=== PATIENT | male | born 1955 | race Two or more races ===

== ENCOUNTER 2020-11-11 02:05 | Inpatient (IN) | payer BC, OTHER ==
[~2020-11-11] VITALS: Ht 180.3 cm; Wt 62.6 kg
--- NOTE | 2020-11-11 02:08 | NUR ---
PT BIBRA FROM [facility] C/O SOB X1 DAY. PT IS TACHYPNIC AND USING ACCESSORY MUSCLES TO BREATHE. PT ON 15L NRB 83%. PT APPERS PALE AND UNABLE TO SPEAK FULL SENTENCES. PT SITTING UPRIGHT IN POSITION OF COMFORT. SKIN IS INTACT AND WARM. IV SITES RT HAND 18G AND LEFT AND 20G. PT CONNECTED TO CONE CLEANER AND POX. BLOOD SAMPLE AND BLOOD CULTURES OBTAINED AND SENT TO LAB. PT MADE COMFORTABLE WITH BLANKET AND CALL LIGHT WITHIN REACH
[2020-11-11 02:49] LABS: CALCIUM, SERUM 9.3 mg/dL (8.5-10.1); CARBON DIOXIDE 30 mmol/L (21-32); CHLORIDE 99 mmol/L (98-107); CREATININE 0.7 mg/dL (0.6-1.3); GLUCOSE 144 mg/dL (74-106); POTASSIUM 4.6 mmol/L (3.5-5.1); SODIUM SERUM 135 mmol/L (136-145); UREA NITROGEN, BLOOD 18 mg/dL (7-18)
--- NOTE | 2020-11-11 02:51 | NUR ---
COVID SWAB SENT TO LAB
--- NOTE | 2020-11-11 02:52 | NUR ---
XRAY AT BEDSIDE
[2020-11-11 02:59] LABS: EOSINOPHILS % (AUTO) 0.4 % (0.0-6.0); HEMATOCRIT 39 % (39-51); HEMOGLOBIN 13.3 g/dL (13.5-17.5); LYMPHOCYTES # (AUTO) 1.7 /CMM (0.8-4.8); LYMPHOCYTES % (AUTO) 4.8 % (20.0-44.0); MEAN CORPUSCULAR HGB CONC 34 g/dl (31.0-36.0); MEAN CORPUSCULAR VOLUME 97 fL (80-96); MONOCYTES # (AUTO) 1.2 /CMM (0.1-1.30); MONOCYTES % (AUTO) 3.2 % (2.0-12.0); NEUTROPHILS # (AUTO) 32.8 /CMM (1.8-8.9); NEUTROPHILS % (AUTO) 91.6 % (43.0-81.0); PLATELET COUNT (AUTO) 151 /CMM (150-450); RED BLOOD CELL COUNT(AUTO) 4.04 MIL/uL (4.5-6.0)
[2020-11-11 03:02] LABS: WHITE BLOOD COUNT (AUTO) 35.8 K/uL (4.3-11.0)
[2020-11-11 03:03] LABS: ALANINE AMINOTRANSFERASE 72 U/L (12-78); ALBUMIN 2.4 g/dL (3.4-5.0); ALKALINE PHOSPHATASE 178 U/L (46-116); ASPARTATE AMINOTRANSFERASE 51 U/L (15-37); B-TYPE NATRIURETIC PEPTIDE 925 PG/ML (0-125); BILIRUBIN,DIRECT 1.6 mg/dL (0.0-0.2); BILIRUBIN,TOTAL 2.7 mg/dL (0.2-1.0); TOTAL PROTEIN, SERUM 8.4 g/dL (6.4-8.2)
[2020-11-11 03:05] LABS: BAND % (MANUAL) 7 % (0.0-5.0); LYMPHOCYTES % (MANUAL) 2 % (16-48); MONOCYTES % (MANUAL) 3 % (0-11.0); NEUTROPHILS % (MANUAL) 87 (42-76)
[2020-11-11] MEDS ORDERED: LIDOCAINE 2% JEL UROJET 10 ML MM ONE (03:45)
[2020-11-11] MEDS ORDERED: ACETAMINOPHEN 650 MG/SUPP.RECT RC ONE ×2 (03:54→04:00)
[2020-11-11 04:35] LABS: BILIRUBIN,URINE NEGATIVE (NEGATIVE); COLOR,URINE YELLOW (YELLOW); LEUKOCYTE ESTERASE ,URINE NEGATIVE (NEGATIVE); NITRITE, URINE NEGATIVE (NEGATIVE); PH,URINE 7.5 (5.0-8.0); PROTEIN,URINE NEGATIVE (NEGATIVE); UGLUCOSE NEGATIVE (NEGATIVE)
[2020-11-11] MEDS ORDERED: methylPREDNISolone SOD SUCC 125 MG/2ML VIAL ONE ×2 (04:48→20:34)
[2020-11-11] MEDS ORDERED: PIPERACILLIN /TAZOBACTAM 3.375 G VIAL IV ONE (04:48)
[2020-11-11] MEDS ORDERED: VANCOMYCIN 1 GM VIAL ONE (04:48)
--- NOTE | 2020-11-11 04:55 | NUR ---
Call from lab. Rapid covid negative.
[2020-11-11] MEDS ORDERED: methylPREDNISolone SOD SUCC 125 MG/2ML VIAL IV ONE (05:00)
[2020-11-11] MEDS ORDERED: VANCOMYCIN 1 GM in IV D5W 250 ML IV ONE (05:00)
[2020-11-11] MEDS ORDERED: PIPERACILLIN /TAZOBACTAM 3.375 G in IV D5W 50 ML IV ONE (05:00)
[2020-11-11 05:21] LABS: BACTERIA,URINE Few /HPF (None Seen); SQUAMOUS EPITHELIAL CELL,UR Moderate /HPF (None Seen)
[2020-11-11] MEDS ORDERED: IV NS 0.9% 1,000 ML BAG IV ONE (05:30)
[2020-11-11] MEDS ORDERED: ACETAMINOPHEN 650 MG/SUPP.RECT RC PRN (06:00)
[2020-11-11] MEDS ORDERED: ONDANSETRON HCL/PF 4 MG/2 ML VIAL IVP PRN (06:00)
[2020-11-11] MEDS ORDERED: MORPHINE SULFATE INJ 2 MG/ML DISP.SYRIN IV PRN (06:00)
--- NOTE | 2020-11-11 07:30 | NUR ---
REPORT GIVEN TO MISHEL BANGURA FOR BAO
[2020-11-11] MEDS: IV NS 0.9% 1,000 ML IV PRN ×2 (08:41→22:00)
[2020-11-11] MEDS ORDERED: ENOXAPARIN SODIUM 40 MG/0.4 ML DISP.SYRIN SQ SCH (09:00)
[2020-11-11] MEDS ORDERED: ENOXAPARIN SODIUM 40 MG/0.4 ML DISP.SYRIN SQ ONE (09:19)
[2020-11-11] MEDS ORDERED: FAMOTIDINE/PF INJ 20 MG/2 ML VIAL IV ONE ×2 (09:21→20:34)
[2020-11-11] MEDS: FAMOTIDINE/PF INJ 20 MG/2 ML VIAL IV SCH ×2 (09:23→20:49)
[2020-11-11] MEDS: PIPERACILLIN /TAZOBACTAM 3.375 G in IV D5W 100 ML IV SCH ×2 (09:39→18:14)
--- NOTE | 2020-11-11 11:35 | NUR ---
dr moreno at bedside. md is aware of lactic acid 3.4 from earlier. md aware of bp 88/61. order receive to given bolus of ns 500ml x 1.
[2020-11-11] MEDS ORDERED: HYDR10SY16 PO (11:45)
[2020-11-11] MEDS ORDERED: METF500S7 PO (11:45)
[2020-11-11] MEDS ORDERED: TIOT18CA3 IH (11:45)
[2020-11-11] MEDS ORDERED: INSU100V SQ (11:45)
[2020-11-11] MEDS ORDERED: ACET-868 PO (11:45)
[2020-11-11] MEDS ORDERED: BUSP15TA3 PO (11:45)
[2020-11-11] MEDS ORDERED: PREDNISONE PO (11:45)
[2020-11-11] MEDS ORDERED: IPRA0.2S49 IH (11:45)
[2020-11-11] MEDS ORDERED: FOLI0.4T2 PO (11:45)
[2020-11-11] MEDS ORDERED: INSU100V7 SQ (11:45)
[2020-11-11] MEDS ORDERED: SPIR25TA6 PO (11:45)
[2020-11-11] MEDS ORDERED: OXYM15MI BNOSTRILS (11:45)
[2020-11-11] MEDS ORDERED: DULO60CA45 PO (11:45)
[2020-11-11] MEDS ORDERED: TRAZ-182 PO (11:45)
[2020-11-11] MEDS ORDERED: ARFO15VI NEB (11:45)
[2020-11-11] MEDS ORDERED: THIA100T70 PO (11:45)
[2020-11-11] MEDS ORDERED: OMEP20TA5 PO (11:45)
[2020-11-11] MEDS ORDERED: MOME13HF IH (11:45)
[2020-11-11] MEDS ORDERED: ALBU0.633 IH (11:45)
--- NOTE | 2020-11-11 12:00 | NUR ---
DR ORTEGA AT BEDSIDE. ABOUT TO START 500ML NS BUT DR. ORTEGA ORDERED TO GIVEN 250ML INSTEAD.
[2020-11-11] MEDS ORDERED: IV NS 0.9% 500 ML BAG IV ONE (12:30)
[2020-11-11] MEDS ORDERED: PIPERACILLIN /TAZOBACTAM 3.375 G in IV D5W 50 ML IV SCH (13:00)
--- NOTE | 2020-11-11 13:18 | NUR ---
DR CUELLAR IS AWARE OF BP 80/54. ORDERED TO COMPLETE THE REMAINDER OF 250ML OF NS THAT WAS HELD BY DR. ORTEGA. NOTED AND CARRIED OUT. IF BP DOES NOT GO UP START PT ON NEOSENEFRINE DRIP PERIPHERALLY. HOUSE SUP CALLED FOR CENTRAL LINE INSERTION.
[2020-11-11] MEDS: VANCOMYCIN 0.75 GM in IV D5W 250 ML IV SCH ×2 (13:30→20:58)
[2020-11-11] MEDS ORDERED: methylPREDNISolone SOD SUCC 125 MG/2ML VIAL IV SCH (13:30)
[2020-11-11] MEDS ORDERED: methylPREDNISolone SOD SUCC 40 MG/ML VIAL ONE (13:38)
--- NOTE | 2020-11-11 13:50 | NUR ---
pt's bp up to 93/44. md instructed to maintain MAP >65.
[2020-11-11] MEDS: methylPREDNISolone SOD SUCC 40 MG/ML VIAL IV SCH ×2 (14:46→20:49)
--- NOTE | 2020-11-11 17:56 | NUR ---
PT TITRATED DOWN TO A SIMPLE MASK AT 10LPM FROM NON REBREATHER @ 15LPM. TOLERATING WELL W/O ANY RESP DISTRESS. SATTING AT 98%
--- NOTE | 2020-11-11 19:05 | NUR ---
REC'D REPORT FROM MISHEL BANGURA FOR BAO. PT IS ON 10L SIMPLE MASK 98% O2 TOLERATING PROPERLY. BP 88/48. PT APPEARS COMFORTABLE, BREATHING EVENLY. CONNECTED TO THE MONITOR AND POX. PT GIVEN BLANETS AND CALL LIGHT WITHIN REACH. WILL CONTINUE TO MONITOR.
--- NOTE | 2020-11-11 19:11 | NUR ---
PT CARE RENDERED. PT IS CLEAN AND DRY. REPOSITIONED
--- NOTE | 2020-11-11 19:32 | NUR ---
consent signed by Godwin Morris dnp d/t pt is unable to sign d/t confusion
--- NOTE | 2020-11-11 19:45 | NUR ---
PICC LINE NURSE AT BEDSIDE. PLACED LINE IN RIGHT UPPER EXTREMITY
[2020-11-11] MEDS ORDERED: hydrOXYzine 10 MG TABLET PO PRN (20:00)
--- NOTE | 2020-11-11 21:05 | NUR ---
RT AT BEDSIDE
[2020-11-11] MEDS: IPRATROPIUM NEB FS 0.5 MG/2.5 ML AMPUL.NEB IH SCH ×2 (21:09→23:32)
[2020-11-11] MEDS ORDERED: IPRATROPIUM NEB FS 0.5 MG/2.5 ML AMPUL.NEB ONE ×2 (21:12→23:22)
[2020-11-11] MEDS ORDERED: TRAZODONE 50 MG TABLET ONE (21:39)
[2020-11-11] MEDS: TRAZODONE 50 MG TABLET PO SCH (21:47)
[2020-11-12] MEDS: PIPERACILLIN /TAZOBACTAM 3.375 G in IV D5W 100 ML IV SCH ×3 (01:30→17:47)
[2020-11-12] MEDS: IPRATROPIUM NEB FS 0.5 MG/2.5 ML AMPUL.NEB IH SCH ×6 (03:32→23:33)
[2020-11-12 04:32] LABS: HEMATOCRIT 33 % (39-51); HEMOGLOBIN 11.1 g/dL (13.5-17.5); LYMPHOCYTES # (AUTO) 0.3 /CMM (0.8-4.8); LYMPHOCYTES % (AUTO) 3.3 % (20.0-44.0); MEAN CORPUSCULAR HGB CONC 33 g/dl (31.0-36.0); MEAN CORPUSCULAR VOLUME 100 fL (80-96); MONOCYTES # (AUTO) 0.2 /CMM (0.1-1.30); MONOCYTES % (AUTO) 2.1 % (2.0-12.0); NEUTROPHILS # (AUTO) 8.4 /CMM (1.8-8.9); NEUTROPHILS % (AUTO) 94.6 % (43.0-81.0); RED BLOOD CELL COUNT(AUTO) 3.35 MIL/uL (4.5-6.0); WHITE BLOOD COUNT (AUTO) 8.8 K/uL (4.3-11.0)
[2020-11-12 04:45] LABS: CALCIUM, SERUM 8.3 mg/dL (8.5-10.1); CREATININE 0.5 mg/dL (0.6-1.3); MAGNESIUM 1.8 mg/dL (1.8-2.4); PHOSPHORUS 2.9 mg/dL (2.5-4.9); POTASSIUM 3.9 mmol/L (3.5-5.1)
[2020-11-12] MEDS: VANCOMYCIN 0.75 GM in IV D5W 250 ML IV SCH ×3 (05:15→21:14)
[2020-11-12] MEDS ORDERED: methylPREDNISolone SOD SUCC 125 MG/2ML VIAL ONE ×2 (05:15→21:06)
[2020-11-12] MEDS: methylPREDNISolone SOD SUCC 40 MG/ML VIAL IV SCH ×3 (05:15→21:14)
[2020-11-12 05:18] LABS: PLATELET COUNT (AUTO) 20 /CMM (150-450)
[2020-11-12 06:52] LABS: LYMPHOCYTES % (MANUAL) 4 % (16-48); MONOCYTES % (MANUAL) 2 % (0-11.0); NEUTROPHILS % (MANUAL) 94 (42-76)
--- NOTE | 2020-11-12 07:27 | NUR ---
GAVE REPORT TO MISHEL GRUBER FOR BAO
[2020-11-12] MEDS ORDERED: IPRATROPIUM NEB FS 0.5 MG/2.5 ML AMPUL.NEB ONE ×4 (07:47→20:01)
[2020-11-12] MEDS ORDERED: ENOXAPARIN SODIUM 40 MG/0.4 ML DISP.SYRIN SQ ONE (08:55)
[2020-11-12] MEDS ORDERED: FOLIC ACID 1 MG TABLET ONE (08:55)
[2020-11-12] MEDS ORDERED: DULOXETINE HCL 30 MG CAPSULE.DR ONE (08:55)
[2020-11-12] MEDS ORDERED: busPIRone 5 MG TABLET ONE (08:55)
[2020-11-12] MEDS ORDERED: THIAMINE HCL 100 MG TABLET ONE (08:56)
[2020-11-12] MEDS ORDERED: PANTOPRAZOLE 40 MG TABLET.DR PO ONE (08:56)
[2020-11-12] MEDS ORDERED: SPIRONOLACTONE 25 MG TABLET ONE (08:56)
[2020-11-12] MEDS ORDERED: ARFORMOTEROL TARTRATE NEB SCH (09:00)
[2020-11-12] MEDS ORDERED: TIOTROPIUM BROMIDE 6 CAP/BOX CAP.W.DEV IH SCH (09:00)
[2020-11-12] MEDS: INSULIN GLARGINE, 100 UNIT/ML CARTRIDGE SQ SCH (09:00)
[2020-11-12] MEDS ORDERED: METFORMIN 500 MG TABLET PO SCH (09:00)
--- NOTE | 2020-11-12 09:00 | NUR ---
SPEECH THERAPIST WAS AT BEDSIDE. PATIENT'S OXYGEN INCREASED TO 10LPM VIA SIMPLE MASK. ST WASN'T ABLE TO PERFORM A SWALLOW EVAL BECAUSE PATIENT DESATS IMMEDIATELY WHEN HE REMOVES THE MASK. PATIENT WAS GIVEN HIS PO MEDS, BUT IS POCKETING THE MEDICATION IN HIS MOUTH, ST STS KEEP PATIENT NPO AT THIS TIME TO PREVENT ASPIRATION.
[2020-11-12] MEDS ORDERED: FAMOTIDINE/PF INJ 20 MG/2 ML VIAL IV ONE ×2 (09:01→21:06)
[2020-11-12] MEDS: SPIRONOLACTONE 25 MG TABLET PO SCH (09:05)
[2020-11-12] MEDS: FAMOTIDINE/PF INJ 20 MG/2 ML VIAL IV SCH ×2 (09:05→21:13)
[2020-11-12] MEDS: OXYMETAZOLINE HCL NASAL SPRAY 30 ML BOTTLE NS SCH ×2 (09:05→16:15)
[2020-11-12] MEDS: FLUTICASONE/VILANTEROL 1 EACH BLST.W.DEV IH SCH (09:05)
[2020-11-12] MEDS: FOLIC ACID 1 MG TABLET PO SCH (09:06)
[2020-11-12] MEDS: DULOXETINE HCL 30 MG CAPSULE.DR PO SCH ×2 (09:06→16:15)
[2020-11-12] MEDS: busPIRone 5 MG TABLET PO SCH ×3 (09:06→16:15)
[2020-11-12] MEDS: THIAMINE HCL 100 MG TABLET PO SCH (09:08)
[2020-11-12] MEDS: PANTOPRAZOLE 40 MG TABLET.DR PO SCH (09:08)
--- NOTE | 2020-11-12 09:30 | NUR ---
JUNE SAXENA. DC'D BY DR. CUELLAR
[2020-11-12 10:55] LABS: HEMOGLOBIN 11.6 g/dL (13.5-17.5)
[2020-11-12 11:00] LABS: HEMATOCRIT 35 % (39-51); LYMPHOCYTES # (AUTO) 0.3 /CMM (0.8-4.8); LYMPHOCYTES % (AUTO) 2.7 % (20.0-44.0); MEAN CORPUSCULAR HGB CONC 33 g/dl (31.0-36.0); MEAN CORPUSCULAR VOLUME 101 fL (80-96); MONOCYTES # (AUTO) 0.2 /CMM (0.1-1.30); MONOCYTES % (AUTO) 2.2 % (2.0-12.0); NEUTROPHILS # (AUTO) 9.8 /CMM (1.8-8.9); NEUTROPHILS % (AUTO) 95.1 % (43.0-81.0); RED BLOOD CELL COUNT(AUTO) 3.47 MIL/uL (4.5-6.0); WHITE BLOOD COUNT (AUTO) 10.3 K/uL (4.3-11.0)
[2020-11-12] MEDS ORDERED: methylPREDNISolone SOD SUCC 40 MG/ML VIAL ONE (12:04)
[2020-11-12 12:45] LABS: BAND % (MANUAL) 3 % (0.0-5.0); LYMPHOCYTES % (MANUAL) 3 % (16-48); MONOCYTES % (MANUAL) 2 % (0-11.0); NEUTROPHILS % (MANUAL) 92 (42-76)
[2020-11-12 12:45] LABS: D-DIMER 2.99 mg/L(FEU (0.17-0.50)
--- NOTE | 2020-11-12 13:38 | NUR ---
PATIENT'S PULSE OX ON 80S WHILE HE WAS ON 10LPM VIA SIMPLE MASK. INCREASED O2 TO 15LPM VIA NRB.
--- NOTE | 2020-11-12 13:50 | NUR ---
PLATELET 65 PER LAB.
[2020-11-12 13:52] LABS: PLATELET COUNT (AUTO) 65 /CMM (150-450)
[2020-11-12 13:56] LABS: IRON, SERUM 19 ug/dl (50-175); TOTAL IRON BINDING CAPACITY 122 ug/dl (250-450)
[2020-11-12 14:06] LABS: FERRITIN 461 ng/mL (8-388)
[2020-11-12 14:41] LABS: ABG OXYGEN SATURATION 98.3 % (92.0-98.5); ABG PCO2 60.6 mmHg (35.0-45.0); ABG PH 7.331 (7.350-7.450); ABG PO2 159.9 mmHg (75.0-100.0); AaDO2 346.9 mmHg; COHb 0.3 % (0.5-1.5); MetHb 0.2 % (0.0-1.5); O2Hb 97.8 % (94.0-97.0); SITE, ABG Right Radial; VENT MODE, BG NRB
[2020-11-12] MEDS: IV NS 0.9% 1,000 ML IV PRN (17:47)
--- NOTE | 2020-11-12 18:07 | NUR ---
PATIENT PLACED ON 6LPM VIA NC WITH SPO2 OF 93-94%. NO RESPIRATORY DISTRESS NOTED.
--- NOTE | 2020-11-12 18:14 | NUR ---
PATIENT A/OX3, PERICARE PROVIDED. NO DISTRESS NOTED. KEPT COMFORTABLE. ALL NEEDS ATTENDED.
--- NOTE | 2020-11-12 19:48 | NUR ---
CALLED RT FOR BREATHING TREATMENT
[2020-11-12] MEDS: TRAZODONE 50 MG TABLET PO SCH (22:00)
--- NOTE | 2020-11-12 22:40 | NUR ---
I TRIED GIVING THE PT WATER, PT WAS ABLE TO SWALLOW 20MLS SLOWLY. I WILL KEEP THE PT NPO AT THIS TIME TO PREVENT ASPIRATION WHEN GIVING MEDS. WILL TRY SWALLOW EVAL AGAIN SOON.
--- NOTE | 2020-11-13 01:13 | NUR ---
PT AWAKE, PROVIDED WITH BLANKETS.
[2020-11-13] MEDS: PIPERACILLIN /TAZOBACTAM 3.375 G in IV D5W 100 ML IV SCH ×3 (02:00→17:06)
[2020-11-13] MEDS: IPRATROPIUM NEB FS 0.5 MG/2.5 ML AMPUL.NEB IH SCH ×6 (03:57→23:53)
--- NOTE | 2020-11-13 04:16 | NUR ---
PT REMAISN ASLEEP, VSS. SAT 94-96%.
[2020-11-13] MEDS: VANCOMYCIN 0.75 GM in IV D5W 250 ML IV SCH ×3 (05:50→21:25)
[2020-11-13 05:53] LABS: HEMATOCRIT 34 % (39-51); HEMOGLOBIN 11.4 g/dL (13.5-17.5); LYMPHOCYTES # (AUTO) 0.3 /CMM (0.8-4.8); LYMPHOCYTES % (AUTO) 4.1 % (20.0-44.0); MEAN CORPUSCULAR HGB CONC 34 g/dl (31.0-36.0); MEAN CORPUSCULAR VOLUME 99 fL (80-96); MONOCYTES # (AUTO) 0.2 /CMM (0.1-1.30); MONOCYTES % (AUTO) 2.4 % (2.0-12.0); NEUTROPHILS % (AUTO) 93.5 % (43.0-81.0); RED BLOOD CELL COUNT(AUTO) 3.41 MIL/uL (4.5-6.0); WHITE BLOOD COUNT (AUTO) 8.6 K/uL (4.3-11.0)
[2020-11-13] MEDS ORDERED: methylPREDNISolone SOD SUCC 125 MG/2ML VIAL ONE (06:02)
[2020-11-13] MEDS: methylPREDNISolone SOD SUCC 40 MG/ML VIAL IV SCH ×3 (06:04→21:16)
[2020-11-13 06:15] LABS: CALCIUM, SERUM 8.9 mg/dL (8.5-10.1); CREATININE 0.4 mg/dL (0.6-1.3); MAGNESIUM 1.7 mg/dL (1.8-2.4); POTASSIUM 3.5 mmol/L (3.5-5.1)
[2020-11-13 06:26] LABS: LYMPHOCYTES % (MANUAL) 3 % (16-48); METAMYELOCYTES % 1 % (0-0); MONOCYTES % (MANUAL) 2 % (0-11.0); NEUTROPHILS % (MANUAL) 94 (42-76)
[2020-11-13 06:28] LABS: PLATELET COUNT (AUTO) 38 /CMM (150-450)
[2020-11-13 06:44] LABS: D-DIMER 1.71 mg/L(FEU (0.17-0.50)
--- NOTE | 2020-11-13 06:45 | NUR ---
PT RESTING COMFORTABLY. VSS. WILL CONTINUE TO MONITOR.
[2020-11-13] MEDS: IV NS 0.9% 1,000 ML IV PRN (07:10)
[2020-11-13] MEDS ORDERED: IPRATROPIUM NEB FS 0.5 MG/2.5 ML AMPUL.NEB ONE ×3 (07:59→23:31)
[2020-11-13 08:06] LABS: IMMUNOGLOBULIN A, SERUM 795 mg/dL (61-437); IMMUNOGLOBULIN G, SERUM 1880 mg/dL (603-1613); IMMUNOGLOBULIN M, SERUM 281 mg/dL (20-172)
[2020-11-13] MEDS ORDERED: FOLIC ACID 1 MG TABLET ONE (08:30)
[2020-11-13] MEDS ORDERED: FAMOTIDINE (20 MG) 20 MG TABLET ONE (08:30)
[2020-11-13] MEDS ORDERED: DULOXETINE HCL 30 MG CAPSULE.DR ONE ×2 (08:30→16:31)
[2020-11-13] MEDS ORDERED: busPIRone 5 MG TABLET ONE ×3 (08:30→16:31)
[2020-11-13] MEDS ORDERED: PANTOPRAZOLE 40 MG TABLET.DR PO ONE (08:31)
[2020-11-13] MEDS ORDERED: THIAMINE HCL 100 MG TABLET ONE (08:31)
[2020-11-13] MEDS ORDERED: SPIRONOLACTONE 25 MG TABLET ONE (08:31)
[2020-11-13] MEDS: FOLIC ACID 1 MG TABLET PO SCH ×2 (09:00→09:09)
[2020-11-13] MEDS: INSULIN GLARGINE, 100 UNIT/ML CARTRIDGE SQ SCH (09:00)
[2020-11-13] MEDS: DULOXETINE HCL 30 MG CAPSULE.DR PO SCH ×3 (09:00→16:40)
[2020-11-13] MEDS: PANTOPRAZOLE 40 MG TABLET.DR PO SCH ×2 (09:00→09:09)
[2020-11-13] MEDS: busPIRone 5 MG TABLET PO SCH ×4 (09:00→16:40)
[2020-11-13] MEDS: SPIRONOLACTONE 25 MG TABLET PO SCH ×2 (09:00→09:09)
[2020-11-13] MEDS: THIAMINE HCL 100 MG TABLET PO SCH ×2 (09:00→09:09)
[2020-11-13] MEDS: OXYMETAZOLINE HCL NASAL SPRAY 30 ML BOTTLE NS SCH ×2 (09:09→16:30)
[2020-11-13] MEDS: FAMOTIDINE/PF INJ 20 MG/2 ML VIAL IV SCH ×2 (09:09→21:22)
[2020-11-13] MEDS: FLUTICASONE/VILANTEROL 1 EACH BLST.W.DEV IH SCH (09:09)
[2020-11-13] MEDS ORDERED: ALBUTEROL FS 2.5 MG/3 ML VIAL.NEB ONE (11:12)
[2020-11-13 13:06] LABS: *SPE A/G RATIO 0.5 (0.7-1.7); *SPE ALBUMIN 2.2 g/dL (2.9-4.4); *SPE ALPHA-1-GLOBULIN 0.4 g/dL (0.0-0.4); *SPE ALPHA-2-GLOBULIN 0.9 g/dL (0.4-1.0); *SPE GLOBULIN, TOTAL 4.7 g/dL (2.2-3.9); *SPE M-SPIKE Not Observed g/dL (Not Observed); *SPEGAMMA GLOBULIN 2.3 g/dL (0.4-1.8)
--- NOTE | 2020-11-13 13:36 | NUR ---
dr. moreno made aware of pts platelet count of 24. no apparent bleeding noted at this time, per md repeat cbc now. also made md aware regarding poor po intake. pt states no appetite. md also ordered megace 400mg qd
[2020-11-13 14:38] LABS: HEMATOCRIT 34 % (39-51); HEMOGLOBIN 11.3 g/dL (13.5-17.5); LYMPHOCYTES # (AUTO) 0.3 /CMM (0.8-4.8); LYMPHOCYTES % (AUTO) 2.8 % (20.0-44.0); MEAN CORPUSCULAR HGB CONC 33 g/dl (31.0-36.0); MEAN CORPUSCULAR VOLUME 98 fL (80-96); MONOCYTES # (AUTO) 0.2 /CMM (0.1-1.30); MONOCYTES % (AUTO) 2.2 % (2.0-12.0); NEUTROPHILS # (AUTO) 9.7 /CMM (1.8-8.9); RED BLOOD CELL COUNT(AUTO) 3.45 MIL/uL (4.5-6.0); WHITE BLOOD COUNT (AUTO) 10.2 K/uL (4.3-11.0)
[2020-11-13] MEDS: Magnesium 1GM/D5W 100ML PREMIX 100 ML IV SCH ×2 (15:00→16:00)
[2020-11-13] MEDS ORDERED: methylPREDNISolone SOD SUCC 40 MG/ML VIAL ONE ×2 (15:19→21:11)
[2020-11-13] MEDS ORDERED: Magnesium 1GM/D5W 100ML PREMIX 200 ML IV ONE (15:20)
[2020-11-13 15:32] LABS: PLATELET COUNT (AUTO) 18 /CMM (150-450)
--- NOTE | 2020-11-13 15:35 | NUR ---
notified dr moreno of platelet 18. awaiting orders.
--- NOTE | 2020-11-13 16:10 | NUR ---
dr moreno answered back, per md transfuse with 1unit of platelet. order placed. blood bank made aware spoke with adrian
[2020-11-13 16:15] LABS: LYMPHOCYTES % (MANUAL) 6 % (16-48); MONOCYTES % (MANUAL) 1 % (0-11.0); NEUTROPHILS % (MANUAL) 93 (42-76)
[2020-11-13] MEDS: MEGESTROL ACETATE SUSP 400 MG/10 ML UDC PO SCH (16:40)
--- NOTE | 2020-11-13 16:54 | NUR ---
consent obtained from pt for blood transfusion (platelets)
--- NOTE | 2020-11-13 16:54 | NUR ---
[facility]- [phone]
[2020-11-13] MEDS ORDERED: Sodium Phosphate 15 MMOL in IV NS 0.9% 245 ML IV SCH (17:00)
[2020-11-13] MEDS ORDERED: CT SWABBABLE VALVE TRANS SET 1 EA INFUS.SET MC ONE (17:06)
[2020-11-13] MEDS ORDERED: IV NS 0.9% 250 ML IV ONE (17:06)
[2020-11-13] MEDS ORDERED: IOHEXOL-350 100 ML VIAL IV ONE (17:06)
[2020-11-13] MEDS ORDERED: FAMOTIDINE/PF INJ 20 MG/2 ML VIAL IV ONE (21:10)
--- NOTE | 2020-11-13 22:13 | NUR ---
REPORT CALLED TO SLASHER HANDMISHEL SENA. WILL TRANSPORT PT VIA ACLS PROTOCOL.
[2020-11-13 22:30] VITALS: BP 136/84
[2020-11-13] MEDS: TRAZODONE 50 MG TABLET PO SCH (23:56)
[2020-11-14] VITALS (14 sets, daily range): BP systolic 103–132; BP diastolic 47–87
[2020-11-14] MEDS: IPRATROPIUM NEB FS 0.5 MG/2.5 ML AMPUL.NEB IH SCH ×6 (03:12→22:56)
[2020-11-14] MEDS: PIPERACILLIN /TAZOBACTAM 3.375 G in IV D5W 100 ML IV SCH ×3 (03:15→17:23)
[2020-11-14] MEDS: IV NS 0.9% 1,000 ML IV PRN (03:16)
[2020-11-14] MEDS: VANCOMYCIN 0.75 GM in IV D5W 250 ML IV SCH ×4 (05:41→22:00)
[2020-11-14] MEDS: LACTULOSE 10 G/15 ML UDC (PYXIS) PO PRN ×2 (05:41→12:07)
[2020-11-14] MEDS: methylPREDNISolone SOD SUCC 40 MG/ML VIAL IV SCH ×3 (05:42→21:11)
--- NOTE | 2020-11-14 07:35 | NUR ---
RN NOTE Patient is noted in bed, awake, alert with episodes of confusion. Breathing even and non labored continues on 6L via NC with no acute distress or shortness of breath noted. Patient is noted with BRIAN PICC line, L hand 22G, R hand 20G all intact and patent. Patient continues on tele monitor noted to be SR. Patient received platelet transfusion and tolerated well. Safety measures implemented with bed in low position and locked. Call light within reach. All needs attended to promptly. Will endorse to continue plan of care as ordered.
--- NOTE | 2020-11-14 08:00 | NUR ---
RN OPENING NOTE Patient is resting in bed, A/O x2-3, showing no signs of acute distress or SOB, saturating 97% on 5L NC. IV lines are clean and intact flushing well. Patient has no complaints of pain at this time. Bed is in lowest position, side rails x2 in upright position, call light is within reach, fall safety and aspiration precautions enforced. Will continue with plan of care. Addendum: 11/14/20 at 1122 by ZAIRE BRITTON RN TELE MONITOR SR
[2020-11-14 08:26] LABS: HEMATOCRIT 34 % (39-51); HEMOGLOBIN 11.5 g/dL (13.5-17.5); LYMPHOCYTES # (AUTO) 0.4 /CMM (0.8-4.8); LYMPHOCYTES % (AUTO) 3.7 % (20.0-44.0); MEAN CORPUSCULAR HGB CONC 34 g/dl (31.0-36.0); MEAN CORPUSCULAR VOLUME 98 fL (80-96); MONOCYTES # (AUTO) 0.2 /CMM (0.1-1.30); MONOCYTES % (AUTO) 2.2 % (2.0-12.0); NEUTROPHILS # (AUTO) 10.1 /CMM (1.8-8.9); NEUTROPHILS % (AUTO) 94.1 % (43.0-81.0); RED BLOOD CELL COUNT(AUTO) 3.49 MIL/uL (4.5-6.0); WHITE BLOOD COUNT (AUTO) 10.7 K/uL (4.3-11.0)
[2020-11-14] MEDS: busPIRone 5 MG TABLET PO SCH ×3 (08:53→16:08)
[2020-11-14] MEDS: FOLIC ACID 1 MG TABLET PO SCH (08:53)
[2020-11-14] MEDS: SPIRONOLACTONE 25 MG TABLET PO SCH (08:53)
[2020-11-14] MEDS: DULOXETINE HCL 30 MG CAPSULE.DR PO SCH ×2 (08:53→16:08)
[2020-11-14] MEDS: THIAMINE HCL 100 MG TABLET PO SCH (08:53)
[2020-11-14] MEDS: FAMOTIDINE/PF INJ 20 MG/2 ML VIAL IV SCH ×2 (08:54→21:11)
[2020-11-14] MEDS: OXYMETAZOLINE HCL NASAL SPRAY 30 ML BOTTLE NS SCH ×2 (08:55→16:09)
[2020-11-14] MEDS: FLUTICASONE/VILANTEROL 1 EACH BLST.W.DEV IH SCH (09:33)
[2020-11-14 09:34] LABS: PLATELET COUNT (AUTO) 28 /CMM (150-450)
[2020-11-14] MEDS: INSULIN GLARGINE, 100 UNIT/ML CARTRIDGE SQ SCH (09:34)
--- NOTE | 2020-11-14 09:55 | NUR ---
RN NOTE Dr. Baugh made aware of platelet level of 28. No new orders at this time.
--- NOTE | 2020-11-14 10:00 | NUR ---
RN NOTE Titrated patient down to 4L NC and patient is saturating 85%. 91% on 5L NC.
[2020-11-14 10:27] LABS: CALCIUM, SERUM 8.7 mg/dL (8.5-10.1); CREATININE 0.5 mg/dL (0.6-1.3); MAGNESIUM 2.2 mg/dL (1.8-2.4); PHOSPHORUS 2.5 mg/dL (2.5-4.9); POTASSIUM 3.2 mmol/L (3.5-5.1)
[2020-11-14 10:30] LABS: C-REACTIVE PROTEIN 4.9 mg/dL (0.0-0.9)
--- NOTE | 2020-11-14 12:10 | NUR ---
RN NOTE Ok per pharmacy to give Vancomycin IV at this time.
[2020-11-14 13:47] LABS: LYMPHOCYTES % (MANUAL) 5 % (16-48); MONOCYTES % (MANUAL) 3 % (0-11.0); NEUTROPHILS % (MANUAL) 92 (42-76)
[2020-11-14] MEDS: POTASSIUM CHLORIDE 20 MEQ TAB.PRT.SR PO SCH ×2 (15:20→16:09)
[2020-11-14] MEDS: MEGESTROL ACETATE SUSP 400 MG/10 ML UDC PO SCH (16:08)
--- NOTE | 2020-11-14 18:06 | NUR ---
RN CLOSING NOTE Patient is resting in bed, A/O x2-3, showing no signs of acute distress or SOB, saturating 97% on 5L NC. IV lines are clean and intact flushing well. Patient has no complaints of pain at this time. All patient needs met, all due medications given, patient kept clean and dry throughout shift. Bed is in lowest position, side rails x2 in upright position, call light is within reach, fall safety and aspiration precautions enforced. Will endorse to cook night for BAO. Addendum: 11/14/20 at 1815 by ZAIRE BRITTON RN *correction: 91% on 5L NC.
--- NOTE | 2020-11-14 19:20 | NUR ---
RN NOTE Patient Received. Patient is noted in bed, awake, alert with episodes of confusion. Patient is able to follow commands. Breathing even and non labored continues on 5L via NC with no acute distress or shortness of breath noted. Patient is noted with BRIAN PICC line, L hand 22G, R hand 20G all intact and patent. Patient continues on tele monitor noted to be SR. Safety measures implemented with bed in low position and locked. Call light within reach. All needs attended to promptly. Will endorse to continue plan of care as ordered.
[2020-11-14] MEDS: TRAZODONE 50 MG TABLET PO SCH (21:11)
[2020-11-15] VITALS (8 sets, daily range): BP systolic 103–133; BP diastolic 60–80
[2020-11-15] MEDS: PIPERACILLIN /TAZOBACTAM 3.375 G in IV D5W 100 ML IV SCH ×3 (02:06→17:16)
[2020-11-15] MEDS: LACTULOSE 10 G/15 ML UDC (PYXIS) PO PRN ×2 (02:40→14:57)
[2020-11-15] MEDS: IPRATROPIUM NEB FS 0.5 MG/2.5 ML AMPUL.NEB IH SCH ×6 (04:34→23:24)
[2020-11-15] MEDS: methylPREDNISolone SOD SUCC 40 MG/ML VIAL IV SCH ×3 (04:41→21:52)
[2020-11-15] MEDS: VANCOMYCIN 0.75 GM in IV D5W 250 ML IV SCH ×3 (04:43→21:54)
[2020-11-15 07:58] LABS: HEMATOCRIT 35 % (39-51); HEMOGLOBIN 11.8 g/dL (13.5-17.5); LYMPHOCYTES # (AUTO) 0.4 /CMM (0.8-4.8); LYMPHOCYTES % (AUTO) 3.7 % (20.0-44.0); MEAN CORPUSCULAR HGB CONC 34 g/dl (31.0-36.0); MEAN CORPUSCULAR VOLUME 97 fL (80-96); MONOCYTES # (AUTO) 0.3 /CMM (0.1-1.30); MONOCYTES % (AUTO) 2.5 % (2.0-12.0); NEUTROPHILS # (AUTO) 10.4 /CMM (1.8-8.9); NEUTROPHILS % (AUTO) 93.8 % (43.0-81.0); RED BLOOD CELL COUNT(AUTO) 3.61 MIL/uL (4.5-6.0); WHITE BLOOD COUNT (AUTO) 11.1 K/uL (4.3-11.0)
--- NOTE | 2020-11-15 07:58 | NUR ---
OPEN NOTES PATIENT IS A/O X 2 ON 6L HUMIDIFIER NASAL CANNULA WITH NO SIGNS OF DISTRESS. R UA PICC LINE RUNNING NS AT 75 ML/HR, IV L HAND #20 G INTACT AND IV R HAND #22G INTACT. ON TELE MONITOR SR. NO COMPLAIN OF PAIN AT THIS TIME. SAFETY MEASURES ARE APPLIED BED IS IN THE LOWEST POSITION SIDE RAILS UP X 2. CALL LIGHT WITHIN REACH WILL CONTINUE TO MONITOR.
[2020-11-15 08:23] LABS: CALCIUM, SERUM 8.9 mg/dL (8.5-10.1); CREATININE 0.5 mg/dL (0.6-1.3); MAGNESIUM 2.1 mg/dL (1.8-2.4); PHOSPHORUS 2.7 mg/dL (2.5-4.9); POTASSIUM 3.9 mmol/L (3.5-5.1)
[2020-11-15] MEDS: FAMOTIDINE/PF INJ 20 MG/2 ML VIAL IV SCH ×2 (09:09→21:51)
[2020-11-15] MEDS: THIAMINE HCL 100 MG TABLET PO SCH (09:09)
[2020-11-15] MEDS: busPIRone 5 MG TABLET PO SCH ×3 (09:09→17:15)
[2020-11-15] MEDS: DULOXETINE HCL 30 MG CAPSULE.DR PO SCH ×2 (09:09→17:15)
[2020-11-15] MEDS: FOLIC ACID 1 MG TABLET PO SCH (09:09)
[2020-11-15] MEDS: FLUTICASONE/VILANTEROL 1 EACH BLST.W.DEV IH SCH (09:20)
[2020-11-15] MEDS: OXYMETAZOLINE HCL NASAL SPRAY 30 ML BOTTLE NS SCH ×2 (09:21→17:15)
[2020-11-15] MEDS: INSULIN GLARGINE, 100 UNIT/ML CARTRIDGE SQ SCH (09:21)
[2020-11-15] MEDS: SPIRONOLACTONE 25 MG TABLET PO SCH (10:15)
[2020-11-15 11:14] LABS: LYMPHOCYTES % (MANUAL) 5 % (16-48); MONOCYTES % (MANUAL) 3 % (0-11.0); NEUTROPHILS % (MANUAL) 92 (42-76)
[2020-11-15 13:27] LABS: PLATELET COUNT (AUTO) 67 /CMM (150-450)
[2020-11-15] MEDS: MEGESTROL ACETATE SUSP 400 MG/10 ML UDC PO SCH (17:15)
--- NOTE | 2020-11-15 19:55 | NUR ---
CLOSED NOTES PATIENT IS A/O X 2 ON 6L HUMIDIFIER NASAL CANNULA WITH NO SIGNS OF DISTRESS. R UA PICC LINE, IV L HAND #20 G INTACT AND IV R HAND #22G INTACT. ON TELE MONITOR SR. NO COMPLAIN OF PAIN AT THIS TIME. PATIENT KEPT CLEAN AND DRY. ALL NEEDS, CARE, TREATMENT, AND MEDICATIONS WERE ADMINISTERED ANTICIPATED PER ORDER. SAFETY MEASURES ARE APPLIED, BED IS IN LOW POSITION SIDE RAILS UP X 2. CALL LIGHT WITHIN REACH WILL ENDORSE TO THE AUTOMOTIVE DETAILER NURSE.
[2020-11-15] MEDS: TRAZODONE 50 MG TABLET PO SCH (22:22)
[2020-11-16] VITALS: BP 108/71
[2020-11-16] MEDS: Z GUARD REMEDY 4 OZ OINT TP PRN (01:18)
[2020-11-16] MEDS: PIPERACILLIN /TAZOBACTAM 3.375 G in IV D5W 100 ML IV SCH ×3 (02:49→17:08)
[2020-11-16] MEDS: IPRATROPIUM NEB FS 0.5 MG/2.5 ML AMPUL.NEB IH SCH ×6 (03:47→23:01)
[2020-11-16 04:00] VITALS: BP 125/89
[2020-11-16] MEDS: VANCOMYCIN 0.75 GM in IV D5W 250 ML IV SCH ×3 (05:38→22:53)
[2020-11-16] MEDS: methylPREDNISolone SOD SUCC 40 MG/ML VIAL IV SCH ×3 (05:38→22:53)
[2020-11-16 07:06] LABS: BASOPHILS % (AUTO) 0.1 % (0.0-2.0); HEMATOCRIT 35 % (39-51); HEMOGLOBIN 11.5 g/dL (13.5-17.5); LYMPHOCYTES # (AUTO) 0.4 /CMM (0.8-4.8); LYMPHOCYTES % (AUTO) 3.3 % (20.0-44.0); MEAN CORPUSCULAR HGB CONC 33 g/dl (31.0-36.0); MEAN CORPUSCULAR VOLUME 98 fL (80-96); MONOCYTES # (AUTO) 0.3 /CMM (0.1-1.30); MONOCYTES % (AUTO) 2.6 % (2.0-12.0); NEUTROPHILS # (AUTO) 11.8 /CMM (1.8-8.9); RED BLOOD CELL COUNT(AUTO) 3.57 MIL/uL (4.5-6.0); WHITE BLOOD COUNT (AUTO) 12.6 K/uL (4.3-11.0)
[2020-11-16 07:38] LABS: PLATELET COUNT (AUTO) 40 /CMM (150-450)
[2020-11-16 07:52] LABS: CALCIUM, SERUM 8.7 mg/dL (8.5-10.1); CREATININE 0.5 mg/dL (0.6-1.3); MAGNESIUM 2.1 mg/dL (1.8-2.4); PHOSPHORUS 2.4 mg/dL (2.5-4.9); POTASSIUM 3.6 mmol/L (3.5-5.1)
[2020-11-16 08:00] VITALS: BP 118/83
--- NOTE | 2020-11-16 08:00 | NUR ---
MS/RN Opening note Patient received from retail shift leader. A/O X2, with periods of confusion. Picc line to right upper arm flushing well with normal saline, no signs of infiltration seen. Safety measures in place, bed in low setting, side rails X3 in upright position. Call light within reach, will conitnue to monitor and ensure safety.
--- NOTE | 2020-11-16 09:00 | NUR ---
MS/RN Medications Morning medications administered, crushed in apple sauce.
[2020-11-16] MEDS: THIAMINE HCL 100 MG TABLET PO SCH (09:01)
[2020-11-16] MEDS: busPIRone 5 MG TABLET PO SCH ×3 (09:01→17:00)
[2020-11-16] MEDS: SPIRONOLACTONE 25 MG TABLET PO SCH (09:02)
[2020-11-16] MEDS: FOLIC ACID 1 MG TABLET PO SCH (09:02)
[2020-11-16] MEDS: DULOXETINE HCL 30 MG CAPSULE.DR PO SCH ×2 (09:02→17:00)
[2020-11-16] MEDS: FAMOTIDINE/PF INJ 20 MG/2 ML VIAL IV SCH ×2 (09:02→22:52)
[2020-11-16] MEDS: Z GUARD REMEDY 2 OZ OINT TP SCH (09:03)
[2020-11-16] MEDS: INSULIN GLARGINE, 100 UNIT/ML CARTRIDGE SQ SCH (09:05)
[2020-11-16] MEDS: OXYMETAZOLINE HCL NASAL SPRAY 30 ML BOTTLE NS SCH ×2 (09:11→17:00)
[2020-11-16] MEDS: FLUTICASONE/VILANTEROL 1 EACH BLST.W.DEV IH SCH (09:19)
--- NOTE | 2020-11-16 09:30 | NUR ---
MS/RN Platelet count Dr Baugh notified of low platelet count, awaiting orders.
--- NOTE | 2020-11-16 10:00 | NUR ---
MS/RN S/B Dr Baugh Seen by MD - made aware of platelet count, order given to continue to monitor.
--- NOTE | 2020-11-16 11:44 | NUR ---
WOUND CARE CONSULT: PT PRESENTS WITH RASH AND INCONTINENCE ASSOCIATED SKIN DAMAGE TO SACRAL/BUTTOCK AREA, PRESENT ON ADMISSION. RECOMMENDATIONS MADE FOR SKIN PROTECTION. DISCUSSED WITH NURSING STAFF. PT IS VERY THIN AND BONY. IN AGREEMENT WITH PLAN OF CARE. CURRENT STANLEY SCORE IS 15. Addendum: 11/16/20 at 1145 by FAITH ASCENCIO WNDNU Amended: Links added.
[2020-11-16 12:00] VITALS: BP 111/73
[2020-11-16] MEDS: LACTULOSE 10 G/15 ML UDC (PYXIS) PO PRN (12:01)
[2020-11-16 12:26] LABS: *ANA ANTI-CENTROMERE B AB <0.2 AI (0.0-0.9); *ANA ANTI-DNA(DS) AB, QN 1 IU/mL (0-9); *ANA ANTI-JO-1 <0.2 AI (0.0-0.9); *ANA ANTICHROMATIN ANTIBODY <0.2 AI (0.0-0.9); *ANA RNP ANTIBODIES <0.2 AI (0.0-0.9); *ANA SJOGREN'S ANTI-SS-A <0.2 AI (0.0-0.9); *ANA SJOGREN'S ANTI-SS-B <0.2 AI (0.0-0.9); *ANAANTI-SCLERODERMA-70 AB <0.2 AI (0.0-0.9); *ANASMITH AB <0.2 AI (0.0-0.9)
--- NOTE | 2020-11-16 13:12 | NUR ---
MS/RN Ammonia Ammonia level elevated at 87, lactulose administered as ordered. Repeat level ordered for tomorrow.
[2020-11-16 16:00] VITALS: BP_SYST 129; BP_DIAS 84; BP_DIAS 89
[2020-11-16] MEDS: MEGESTROL ACETATE SUSP 400 MG/10 ML UDC PO SCH (16:59)
[2020-11-16] MEDS: CLOTRIMAZOLE 1% 15 GM TUBE TP SCH (17:15)
[2020-11-16] MEDS ORDERED: NEUTRA PHOS 1 POWD.PACKET PO ONE (17:30)
--- NOTE | 2020-11-16 18:32 | NUR ---
MS/RN End note Patient remains in stable condition, all care to continue as ordered. Will endorse to airplane flight attendant supervisor.
[2020-11-16 20:00] VITALS: BP 116/85
[2020-11-16] MEDS: TRAZODONE 50 MG TABLET PO SCH (22:53)
[2020-11-17] VITALS: BP 128/80
[2020-11-17] MEDS: PIPERACILLIN /TAZOBACTAM 3.375 G in IV D5W 100 ML IV SCH ×3 (02:53→20:47)
[2020-11-17] MEDS: IPRATROPIUM NEB FS 0.5 MG/2.5 ML AMPUL.NEB IH SCH ×6 (03:07→22:54)
[2020-11-17 04:00] VITALS: BP 112/67
[2020-11-17] MEDS: VANCOMYCIN 0.75 GM in IV D5W 250 ML IV SCH ×3 (05:35→22:15)
[2020-11-17] MEDS: methylPREDNISolone SOD SUCC 40 MG/ML VIAL IV SCH ×2 (05:35→14:49)
[2020-11-17 06:46] LABS: BASOPHILS % (AUTO) 0.1 % (0.0-2.0); EOSINOPHILS % (AUTO) 0.1 % (0.0-6.0); HEMATOCRIT 33 % (39-51); HEMOGLOBIN 11.1 g/dL (13.5-17.5); LYMPHOCYTES # (AUTO) 0.3 /CMM (0.8-4.8); LYMPHOCYTES % (AUTO) 3.2 % (20.0-44.0); MEAN CORPUSCULAR HGB CONC 34 g/dl (31.0-36.0); MEAN CORPUSCULAR VOLUME 98 fL (80-96); MONOCYTES # (AUTO) 0.3 /CMM (0.1-1.30); MONOCYTES % (AUTO) 2.4 % (2.0-12.0); NEUTROPHILS # (AUTO) 10.1 /CMM (1.8-8.9); NEUTROPHILS % (AUTO) 94.2 % (43.0-81.0); RED BLOOD CELL COUNT(AUTO) 3.36 MIL/uL (4.5-6.0); WHITE BLOOD COUNT (AUTO) 10.7 K/uL (4.3-11.0)
[2020-11-17 07:03] LABS: CALCIUM, SERUM 8.6 mg/dL (8.5-10.1); CREATININE 0.4 mg/dL (0.6-1.3); POTASSIUM 3.8 mmol/L (3.5-5.1)
--- NOTE | 2020-11-17 07:30 | NUR ---
RECEIVED PT. ALERT AND ORIENTED X2,MAINLY INDONESIAN SPEAKING.VS STABLE.02 REAPPLIED OFTEN PT. REMOVES.HOB ELEVATED. Addendum: 11/17/20 at 1131 by BOB NIEVES RN INCORRECT PT.
--- NOTE | 2020-11-17 08:00 | NUR ---
RECEIVED PT. IN AM.ALERT AND ORIENTED X2-3.COOPERATIVE.MED COMPLIANT.VS STABLE.IV INFUSING.
[2020-11-17 08:13] VITALS: BP 114/72
--- NOTE | 2020-11-17 08:30 | NUR ---
RECEIVED PLATELET REPORT OF FOR TODAY. Addendum: 11/17/20 at 1132 by BOB NIEVES RN INCORRECT PT.
[2020-11-17] MEDS: SPIRONOLACTONE 25 MG TABLET PO SCH (09:00)
[2020-11-17] MEDS: CLOTRIMAZOLE 1% 15 GM TUBE TP SCH ×2 (09:00→17:44)
[2020-11-17] MEDS: INSULIN GLARGINE, 100 UNIT/ML CARTRIDGE SQ SCH (09:26)
[2020-11-17] MEDS: FLUTICASONE/VILANTEROL 1 EACH BLST.W.DEV IH SCH (09:27)
[2020-11-17] MEDS: OXYMETAZOLINE HCL NASAL SPRAY 30 ML BOTTLE NS SCH ×2 (09:27→17:44)
[2020-11-17] MEDS: FAMOTIDINE/PF INJ 20 MG/2 ML VIAL IV SCH (09:57)
[2020-11-17] MEDS: DULOXETINE HCL 30 MG CAPSULE.DR PO SCH ×2 (09:58→17:45)
[2020-11-17] MEDS: busPIRone 5 MG TABLET PO SCH ×3 (09:58→17:00)
[2020-11-17] MEDS: FOLIC ACID 1 MG TABLET PO SCH (09:58)
[2020-11-17] MEDS: THIAMINE HCL 100 MG TABLET PO SCH (09:58)
[2020-11-17] MEDS: Z GUARD REMEDY 2 OZ OINT TP SCH (10:02)
[2020-11-17 10:40] LABS: PLATELET COUNT (AUTO) 45 /CMM (150-450)
[2020-11-17 16:00] VITALS: BP 104/74
[2020-11-17] MEDS ORDERED: methylPREDNISolone SOD SUCC 40 MG/ML VIAL IV SCH (17:30)
[2020-11-17] MEDS: MEGESTROL ACETATE SUSP 400 MG/10 ML UDC PO SCH (17:44)
--- NOTE | 2020-11-17 19:15 | NUR ---
RN NOTE Patient Received. Patient is noted in bed, awake, alert with episodes of confusion. Patient is able to follow simple commands. Breathing even and non labored continues on 6L via NC with no acute distress or shortness of breath noted. Patient is noted with BRIAN PICC line, L hand 22G all intact and patent. Patient continues on tele monitor noted to be SR. Safety measures implemented with bed in low position and locked. Call light within reach. All needs attended to promptly. Will continue plan of care as ordered.
[2020-11-17 20:00] VITALS: BP 107/70
[2020-11-17] MEDS: TRAZODONE 50 MG TABLET PO SCH (21:01)
[2020-11-18] VITALS (8 sets, daily range): BP systolic 92–108; BP diastolic 60–83
[2020-11-18] MEDS: PIPERACILLIN /TAZOBACTAM 3.375 G in IV D5W 100 ML IV SCH ×3 (02:22→19:27)
[2020-11-18] MEDS: IPRATROPIUM NEB FS 0.5 MG/2.5 ML AMPUL.NEB IH SCH ×6 (04:10→19:30)
[2020-11-18] MEDS: VANCOMYCIN 0.75 GM in IV D5W 250 ML IV SCH ×3 (05:11→21:23)
[2020-11-18] MEDS: LACTULOSE 10 G/15 ML UDC (PYXIS) PO PRN ×2 (05:12→12:41)
[2020-11-18] MEDS: IV NS 0.9% 1,000 ML IV PRN (05:29)
[2020-11-18 07:09] LABS: EOSINOPHILS % (AUTO) 0.8 % (0.0-6.0); HEMATOCRIT 35 % (39-51); HEMOGLOBIN 11.6 g/dL (13.5-17.5); LYMPHOCYTES # (AUTO) 0.8 /CMM (0.8-4.8); LYMPHOCYTES % (AUTO) 5.5 % (20.0-44.0); MEAN CORPUSCULAR HGB CONC 33 g/dl (31.0-36.0); MEAN CORPUSCULAR VOLUME 99 fL (80-96); MONOCYTES # (AUTO) 0.3 /CMM (0.1-1.30); MONOCYTES % (AUTO) 2.5 % (2.0-12.0); NEUTROPHILS # (AUTO) 12.6 /CMM (1.8-8.9); NEUTROPHILS % (AUTO) 91.2 % (43.0-81.0); RED BLOOD CELL COUNT(AUTO) 3.54 MIL/uL (4.5-6.0); WHITE BLOOD COUNT (AUTO) 13.8 K/uL (4.3-11.0)
[2020-11-18 07:22] LABS: CALCIUM, SERUM 8.5 mg/dL (8.5-10.1); CREATININE 0.5 mg/dL (0.6-1.3); POTASSIUM 3.7 mmol/L (3.5-5.1)
[2020-11-18 07:24] LABS: D-DIMER 2.76 mg/L(FEU (0.17-0.50)
[2020-11-18 08:37] LABS: PLATELET COUNT (AUTO) 13 /CMM (150-450)
[2020-11-18] MEDS: SPIRONOLACTONE 25 MG TABLET PO SCH (09:00)
[2020-11-18] MEDS: PANTOPRAZOLE 40 MG TABLET.DR PO SCH (09:54)
[2020-11-18] MEDS: DULOXETINE HCL 30 MG CAPSULE.DR PO SCH ×2 (09:54→19:40)
[2020-11-18] MEDS: busPIRone 5 MG TABLET PO SCH ×3 (09:54→19:39)
[2020-11-18] MEDS: FOLIC ACID 1 MG TABLET PO SCH (09:54)
[2020-11-18] MEDS: methylPREDNISolone SOD SUCC 40 MG/ML VIAL IV SCH (09:55)
[2020-11-18] MEDS: CLOTRIMAZOLE 1% 15 GM TUBE TP SCH ×2 (09:59→19:38)
[2020-11-18] MEDS: Z GUARD REMEDY 2 OZ OINT TP SCH (09:59)
[2020-11-18] MEDS: THIAMINE HCL 100 MG TABLET PO SCH (09:59)
[2020-11-18] MEDS: OXYMETAZOLINE HCL NASAL SPRAY 30 ML BOTTLE NS SCH ×2 (10:00→19:38)
[2020-11-18] MEDS: FLUTICASONE/VILANTEROL 1 EACH BLST.W.DEV IH SCH (10:02)
[2020-11-18] MEDS: INSULIN GLARGINE, 100 UNIT/ML CARTRIDGE SQ SCH (10:04)
[2020-11-18 13:36] LABS: LYMPHOCYTES % (MANUAL) 8 % (16-48); MONOCYTES % (MANUAL) 4 % (0-11.0); NEUTROPHILS % (MANUAL) 88 (42-76)
--- NOTE | 2020-11-18 18:30 | NUR ---
received pt. in am alert and oriented x2.episodes of confusion,follow commands.vs stable.
[2020-11-18] MEDS: MEGESTROL ACETATE SUSP 400 MG/10 ML UDC PO SCH (19:41)
[2020-11-18] MEDS: TRAZODONE 50 MG TABLET PO SCH (21:23)
--- NOTE | 2020-11-18 21:44 | NUR ---
NURSES NOTES: RECEIVED PTIENT IN BED, AWAKE,ALERT AND ORIENTED X2 WITH NOTED EPISODES OF CONFUSION. WILL ADMINISTER ORDERED MEDICATIONS. RIGHT UPPER ARM PICC LINE IN PLACE. REALITY ORIENTATION DONE. BED ALARM KEPT ON. CALL LIGHT WITHIN PATIENT'S REACH. SAFETY AND FALL PRECAUTIONS MAINTAINED. WILL MONITOR PATIENT.
[2020-11-19] VITALS: BP_SYST 113; BP_DIAS 64; BP_DIAS 73
[2020-11-19] MEDS: IPRATROPIUM NEB FS 0.5 MG/2.5 ML AMPUL.NEB IH SCH ×7 (00:19→23:41)
[2020-11-19] MEDS: PIPERACILLIN /TAZOBACTAM 3.375 G in IV D5W 100 ML IV SCH ×2 (02:05→10:10)
[2020-11-19 04:00] VITALS: BP 119/60
[2020-11-19 04:05] VITALS: BP 119/60
[2020-11-19] MEDS: VANCOMYCIN 0.75 GM in IV D5W 250 ML IV SCH ×2 (04:06→13:18)
--- NOTE | 2020-11-19 06:17 | NUR ---
CLOSING NOTES: PATIENT IN BED, RESTING COMFORTABLY WITH O2 INHALATION AT 5LPM. NO COMPLAINS OF PAIN , NO RESPIRATORY DISTRESS THIS TIME. ADMINISTERED SCHEDULED MEDICATIONS. SAFETY AND FALL PRECAUTIONS MAINTAINED. IVF ON GOING. O2 SATS MONITORED. WILL ENDORSE PATIENT'S CARE TO DAY SHIFT NURSE.
--- NOTE | 2020-11-19 07:30 | NUR ---
TELE/RN OPENING NOTES Patient is awake in bed, A&O x 2, follows commands and able to make needs known. Denies any pain and discomfort at this time. Breathing even and non-labored on 5 L oxygen via NC, no respiratory distress noted. No cardiac distress noted, on tele monitor reading ST 103. BRIAN PICC line and L hand #22g present, patent and intact, and running NS at 75 ml/hr. Bed locked to its lowest position, side rails x 2 up, call light in hand. Will continue with current medical management.
[2020-11-19 07:35] LABS: EOSINOPHILS % (AUTO) 1.4 % (0.0-6.0); HEMATOCRIT 34 % (39-51); HEMOGLOBIN 11.2 g/dL (13.5-17.5); LYMPHOCYTES % (AUTO) 6.7 % (20.0-44.0); MEAN CORPUSCULAR HGB CONC 33 g/dl (31.0-36.0); MEAN CORPUSCULAR VOLUME 98 fL (80-96); MONOCYTES # (AUTO) 0.3 /CMM (0.1-1.30); MONOCYTES % (AUTO) 2.2 % (2.0-12.0); NEUTROPHILS # (AUTO) 13.5 /CMM (1.8-8.9); NEUTROPHILS % (AUTO) 89.7 % (43.0-81.0); RED BLOOD CELL COUNT(AUTO) 3.42 MIL/uL (4.5-6.0)
[2020-11-19 07:50] LABS: ALBUMIN 1.7 g/dL (3.4-5.0); BILIRUBIN,DIRECT 0.7 mg/dL (0.0-0.2); BILIRUBIN,TOTAL 1.6 mg/dL (0.2-1.0); CALCIUM, SERUM 8.3 mg/dL (8.5-10.1); CREATININE 0.4 mg/dL (0.6-1.3); POTASSIUM 3.6 mmol/L (3.5-5.1); TOTAL PROTEIN, SERUM 5.7 g/dL (6.4-8.2)
[2020-11-19 08:00] VITALS: BP 101/64
[2020-11-19 08:07] LABS: PLATELET COUNT (AUTO) 41 /CMM (150-450)
[2020-11-19 08:28] LABS: D-DIMER 2.95 mg/L(FEU (0.17-0.50)
--- NOTE | 2020-11-19 08:45 | NUR ---
TELE/RN NOTE Patient's reported critical lab for platelets [id number], notified Sarah CIFUENTES. No new orders at this time.
[2020-11-19] MEDS: PANTOPRAZOLE 40 MG TABLET.DR PO SCH (09:00)
[2020-11-19] MEDS: OXYMETAZOLINE HCL NASAL SPRAY 30 ML BOTTLE NS SCH ×3 (09:00→16:29)
[2020-11-19] MEDS: SPIRONOLACTONE 25 MG TABLET PO SCH (09:00)
[2020-11-19] MEDS: FLUTICASONE/VILANTEROL 1 EACH BLST.W.DEV IH SCH (09:09)
[2020-11-19] MEDS: DULOXETINE HCL 30 MG CAPSULE.DR PO SCH ×2 (09:10→16:27)
[2020-11-19] MEDS: FOLIC ACID 1 MG TABLET PO SCH (09:10)
[2020-11-19] MEDS: methylPREDNISolone SOD SUCC 40 MG/ML VIAL IV SCH (09:10)
[2020-11-19] MEDS: THIAMINE HCL 100 MG TABLET PO SCH (09:11)
[2020-11-19] MEDS: busPIRone 5 MG TABLET PO SCH ×3 (09:11→16:27)
[2020-11-19] MEDS: CLOTRIMAZOLE 1% 15 GM TUBE TP SCH ×2 (09:12→16:28)
[2020-11-19] MEDS: Z GUARD REMEDY 2 OZ OINT TP SCH (09:12)
[2020-11-19] MEDS: INSULIN GLARGINE, 100 UNIT/ML CARTRIDGE SQ SCH (09:44)
[2020-11-19] MEDS: LACTULOSE 10 G/15 ML UDC (PYXIS) PO PRN ×2 (10:11→16:27)
[2020-11-19 12:00] VITALS: BP 95/60
--- NOTE | 2020-11-19 12:00 | NUR ---
TELE/RN NOTE ESAU Smith at bedside. Clarified accucheck and insulin orders, ordered accucheck ACHS and mild regular insulin sliding scale. Orders carried out, will continue to monitor.
[2020-11-19] MEDS ORDERED: DEXTROSE 50%-WATER 50 ML DISP.SYRIN IV PRN (12:30)
[2020-11-19] MEDS: INSULIN REGULAR, HUMAN 100 UNIT/ML 3 ML VIAL SQ PRN ×3 (13:17→21:21)
[2020-11-19] MEDS: BLOOD SUGAR DIAGNOSTIC 1 EACH STRIP IN SCH ×3 (13:19→21:24)
[2020-11-19] MEDS: MEGESTROL ACETATE SUSP 400 MG/10 ML UDC PO SCH (16:27)
--- NOTE | 2020-11-19 19:30 | NUR ---
TELE/RN CLOSING NOTES Patient awake in bed, watching TV A&O x 2, remains to follow commands and able to make needs known. Denies any pain and discomfort at this throughout shift. Breathing even and non-labored on 5 L oxygen via NC, saturating at 95%, no respiratory distress noted. No cardiac distress noted, on tele monitor reading ST 103. BRIAN PICC line and L hand #22g present, patent and intact, and running NS at 75 ml/hr. Fall precautions maintained. Will endorse to cow buyer nurse.
[2020-11-19 20:00] VITALS: BP 103/71
--- NOTE | 2020-11-19 20:00 | NUR ---
NURSES OPENING NOTES: RECEIVED PATIENT IN BED, AWAKE, WITH PICC LINE IN RIGHT UPPER ARM IN PLACE, IV HEPLOCK ON LEFT HAND G#[address] WILL CHECK PATIENT,'S BLOOD GLUCOSE LEVELS ORDERED. WILL ADMINISTER ORDERED MEDICATIONS. SAFETY AND FALL PRECAUTIONS MAINTAINED. BED ALARM KEPT ON. WILL CONTINUE TO MONITOR.
[2020-11-19] MEDS: TRAZODONE 50 MG TABLET PO SCH (21:14)
[2020-11-20] VITALS (7 sets, daily range): BP systolic 101–112; BP diastolic 67–78
[2020-11-20] MEDS: IV NS 0.9% 1,000 ML IV PRN ×2 (02:26→16:12)
[2020-11-20] MEDS: IPRATROPIUM NEB FS 0.5 MG/2.5 ML AMPUL.NEB IH SCH ×6 (04:09→22:35)
[2020-11-20 04:10] LABS: BASOPHILS % (AUTO) 0.1 % (0.0-2.0); EOSINOPHILS % (AUTO) 0.5 % (0.0-6.0); HEMATOCRIT 34 % (39-51); HEMOGLOBIN 11.2 g/dL (13.5-17.5); LYMPHOCYTES # (AUTO) 0.6 /CMM (0.8-4.8); LYMPHOCYTES % (AUTO) 5.3 % (20.0-44.0); MEAN CORPUSCULAR HGB CONC 33 g/dl (31.0-36.0); MEAN CORPUSCULAR VOLUME 99 fL (80-96); MONOCYTES # (AUTO) 0.3 /CMM (0.1-1.30); MONOCYTES % (AUTO) 2.7 % (2.0-12.0); NEUTROPHILS % (AUTO) 91.4 % (43.0-81.0)
[2020-11-20 04:23] LABS: PLATELET COUNT (AUTO) 52 /CMM (150-450)
[2020-11-20 04:27] LABS: CALCIUM, SERUM 8.3 mg/dL (8.5-10.1); CREATININE 0.4 mg/dL (0.6-1.3); MAGNESIUM 1.8 mg/dL (1.8-2.4); PHOSPHORUS 2.3 mg/dL (2.5-4.9)
[2020-11-20] MEDS: BLOOD SUGAR DIAGNOSTIC 1 EACH STRIP IN SCH ×4 (06:37→21:20)
--- NOTE | 2020-11-20 07:45 | NUR ---
CLOSING NOTES: PATIENT IN BED, WITH O2 INHALATION ON GOING AT 6LPM. RIGHT UPPER ARM PICC LINE IN PLACE. IV HEPLOCK IN LEFT HAND IN PLACE. PATIENT ON SWALLOW PRECAUTIONS- FOLLOWED ORDERED. BLOOD GLUCOSE LEVELS DONE ORDERED. NEEDS ATTENDED. WILL ENDORSE PATIENT TO DAY SHIFT NURSE.
[2020-11-20 08:14] LABS: ABG BASE EXCESS 10.8 mmol/L; ABG OXYGEN SATURATION 94.7 % (92.0-98.5); ABG PCO2 47.2 mmHg (35.0-45.0); ABG PH 7.493 (7.350-7.450); ABG PO2 69.1 mmHg (75.0-100.0); AaDO2 190.8 mmHg; COHb 2.1 % (0.5-1.5); MetHb 0.1 % (0.0-1.5); O2Hb 92.6 % (94.0-97.0); SITE, ABG Right Radial; VENT MODE, BG NASAL CANNULA 44%
[2020-11-20] MEDS: FOLIC ACID 1 MG TABLET PO SCH (08:21)
[2020-11-20] MEDS: SPIRONOLACTONE 25 MG TABLET PO SCH (08:21)
[2020-11-20] MEDS: THIAMINE HCL 100 MG TABLET PO SCH (08:21)
[2020-11-20] MEDS: predniSONE 20 MG TABLET PO SCH (08:21)
[2020-11-20] MEDS: busPIRone 5 MG TABLET PO SCH ×3 (08:21→17:29)
[2020-11-20] MEDS: PANTOPRAZOLE 40 MG TABLET.DR PO SCH (08:21)
[2020-11-20] MEDS: DULOXETINE HCL 30 MG CAPSULE.DR PO SCH ×2 (08:21→17:29)
[2020-11-20] MEDS: OXYMETAZOLINE HCL NASAL SPRAY 30 ML BOTTLE NS SCH ×2 (08:37→17:29)
[2020-11-20] MEDS: FLUTICASONE/VILANTEROL 1 EACH BLST.W.DEV IH SCH (08:38)
[2020-11-20] MEDS: CLOTRIMAZOLE 1% 15 GM TUBE TP SCH ×2 (08:38→17:33)
[2020-11-20] MEDS: Z GUARD REMEDY 2 OZ OINT TP SCH (08:38)
[2020-11-20] MEDS: INSULIN GLARGINE, 100 UNIT/ML CARTRIDGE SQ SCH (09:25)
[2020-11-20] MEDS ORDERED: LACTULOSE 10 G/15 ML UDC (PYXIS) PO PRN (10:00)
[2020-11-20] MEDS ORDERED: K PHOS NEUTRAL 250 MG TABLET PO ONE (12:30)
--- NOTE | 2020-11-20 13:30 | NUR ---
tele kitchen worker: notes p.t. at bedside for eval, pt gets sob on exertion. pt only did a litte bit of exercises due to sob on exertion. kept comfortable. hob elevated. remains on o2 at 5-6 liters/min via n/c. will continue to monitor.
[2020-11-20] MEDS: MEGESTROL ACETATE SUSP 400 MG/10 ML UDC PO SCH (17:29)
[2020-11-20] MEDS: INSULIN REGULAR, HUMAN 100 UNIT/ML 3 ML VIAL SQ PRN ×2 (17:32→21:27)
--- NOTE | 2020-11-20 19:15 | NUR ---
tele baker bread: notes report given to stacey leonardo) for continuity of care.
--- NOTE | 2020-11-20 20:04 | NUR ---
RN NOTES RECEIVED PATIENT IN BED, AWAKE, WITH PICC LINE IN RIGHT UPPER ARM IN PLACE, IV HEPLOCK ON LEFT HAND G#[address] INTACT. NO SIGNS OF RESPIRATORY DISTRESS NOTED OR REPORTED NO PAIN VISIBLE OR REPORTED AT THIS TIME. PATIENT ON 6L OF OXYGEN VIA NASAL CANNULA. SAFETY AND FALL PRECAUTIONS MAINTAINED. BED ALARM KEPT ON. PT ON THICKENED LIQUID DIET. WILL CONTINUE TO MONITOR.
[2020-11-20] MEDS: TRAZODONE 50 MG TABLET PO SCH (21:10)
[2020-11-21] VITALS: BP 115/86
[2020-11-21] MEDS: IPRATROPIUM NEB FS 0.5 MG/2.5 ML AMPUL.NEB IH SCH ×6 (03:30→23:26)
[2020-11-21 04:00] VITALS: BP 122/80
[2020-11-21] MEDS: BLOOD SUGAR DIAGNOSTIC 1 EACH STRIP IN SCH ×4 (06:22→22:16)
[2020-11-21] MEDS: IV NS 0.9% 1,000 ML IV PRN ×2 (06:27→20:24)
--- NOTE | 2020-11-21 07:18 | NUR ---
RN NOTES RECEIVED PATIENT IN BED, AWAKE, WITH PICC LINE IN RIGHT UPPER ARM IN PLACE, IV HEPLOCK ON LEFT HAND G#[address] INTA[address]. NO SIGNS OF RESPIRATORY DISTRESS NOTED OR REPORTED NO PAIN VISIBLE OR REPORTED AT THIS TIME. PATIENT ON 6L OF OXYGEN VIA NASAL CANNULA. SAFETY AND FALL PRECAUTIONS MAINTAINED. BED ALARM KEPT ON. PT ON THICKENED LIQUID DIET. WILL ENDORSE CARE TO DAY SHIFT NURSE
[2020-11-21 07:31] LABS: BASOPHILS % (AUTO) 0.2 % (0.0-2.0); EOSINOPHILS % (AUTO) 1.6 % (0.0-6.0); HEMATOCRIT 33 % (39-51); LYMPHOCYTES # (AUTO) 1.4 /CMM (0.8-4.8); LYMPHOCYTES % (AUTO) 8.3 % (20.0-44.0); MEAN CORPUSCULAR HGB CONC 34 g/dl (31.0-36.0); MEAN CORPUSCULAR VOLUME 98 fL (80-96); MONOCYTES # (AUTO) 0.6 /CMM (0.1-1.30); MONOCYTES % (AUTO) 3.3 % (2.0-12.0); NEUTROPHILS # (AUTO) 14.4 /CMM (1.8-8.9); NEUTROPHILS % (AUTO) 86.6 % (43.0-81.0); RED BLOOD CELL COUNT(AUTO) 3.36 MIL/uL (4.5-6.0); WHITE BLOOD COUNT (AUTO) 16.6 K/uL (4.3-11.0)
[2020-11-21] MEDS: PANTOPRAZOLE 40 MG TABLET.DR PO SCH (07:44)
--- NOTE | 2020-11-21 08:00 | NUR ---
RN Opening note Received patient in bed, AO x 2, able to responds all stimuli, Pt does no appears pain or distress. Skin is warm to touch keep clean/dry intact piccline on right upper arm, respiratory even and unlabored with oxygen at 2L via NC, O2sat 94%. Kept locked bed with elevated HOB for aspiration precaution and ensure airway and lowest bed foe safety. Call light within reach, will continue to monitor.
[2020-11-21 08:15] VITALS: BP 125/78
[2020-11-21 08:19] LABS: PLATELET COUNT (AUTO) 45 /CMM (150-450)
[2020-11-21 08:45] LABS: CALCIUM, SERUM 8.5 mg/dL (8.5-10.1); CREATININE 0.3 mg/dL (0.6-1.3); MAGNESIUM 1.8 mg/dL (1.8-2.4); PHOSPHORUS 2.2 mg/dL (2.5-4.9); POTASSIUM 3.9 mmol/L (3.5-5.1)
[2020-11-21] MEDS: FLUTICASONE/VILANTEROL 1 EACH BLST.W.DEV IH SCH (09:00)
[2020-11-21] MEDS: INSULIN GLARGINE, 100 UNIT/ML CARTRIDGE SQ SCH (09:00)
[2020-11-21] MEDS: Z GUARD REMEDY 2 OZ OINT TP SCH (09:00)
[2020-11-21] MEDS: busPIRone 5 MG TABLET PO SCH ×3 (09:25→16:24)
[2020-11-21] MEDS: DULOXETINE HCL 30 MG CAPSULE.DR PO SCH ×2 (09:25→16:24)
[2020-11-21] MEDS: FOLIC ACID 1 MG TABLET PO SCH (09:25)
[2020-11-21] MEDS: THIAMINE HCL 100 MG TABLET PO SCH (09:25)
[2020-11-21] MEDS: predniSONE 20 MG TABLET PO SCH (09:25)
[2020-11-21] MEDS: SPIRONOLACTONE 25 MG TABLET PO SCH (09:26)
[2020-11-21] MEDS: CLOTRIMAZOLE 1% 15 GM TUBE TP SCH ×2 (09:26→16:31)
[2020-11-21] MEDS: OXYMETAZOLINE HCL NASAL SPRAY 30 ML BOTTLE NS SCH ×2 (09:27→16:31)
[2020-11-21 12:00] VITALS: BP 112/68
[2020-11-21 16:00] VITALS: BP 113/80
[2020-11-21] MEDS ORDERED: K PHOS NEUTRAL 250 MG TABLET PO ONE (16:00)
[2020-11-21] MEDS: MEGESTROL ACETATE SUSP 400 MG/10 ML UDC PO SCH (16:24)
[2020-11-21] MEDS: INSULIN REGULAR, HUMAN 100 UNIT/ML 3 ML VIAL SQ PRN ×2 (17:32→22:28)
--- NOTE | 2020-11-21 18:30 | NUR ---
RN closing Patient in bed resting, does no complained distress or discomfort. Skin is warm to touch, keep clean/dry, intact IV site. Respiratory even and unlabored with oxygen at 6L via NC O2sat 95%. Kept elevated HOB for ensure air way and aspiration precaution and lowest bed for safety. Call light within reach, will endorse shift leader
--- NOTE | 2020-11-21 19:25 | NUR ---
RN NOTE Patient Received. Patient is noted in bed, awake, alert and oriented x 2 with episodes of confusion. Patient is able to follow simple commands. Breathing is even and nonlabored and continues on 6L via NC. No shortness of breath or acute distress noted. Patient is noted with BRIAN PICCline noted patent and intact. Safety precautions in place. Bed is in lowest position and locked. Call light within reach. All needs attended to promptly. Will continue plan of care as ordered.
[2020-11-21] MEDS: TRAZODONE 50 MG TABLET PO SCH (21:54)
[2020-11-22] MEDS: IPRATROPIUM NEB FS 0.5 MG/2.5 ML AMPUL.NEB IH SCH ×5 (03:56→20:02)
[2020-11-22] MEDS: BLOOD SUGAR DIAGNOSTIC 1 EACH STRIP IN SCH ×4 (06:40→22:12)
--- NOTE | 2020-11-22 07:05 | NUR ---
RN NOTE Patient is noted in bed, awake, alert and oriented x 2 with episodes of confusion. Patient is able to follow simple commands. Breathing is even and nonlabored and continues on 6L via NC. No shortness of breath or acute distress noted. Patient is noted with BRIAN PICCline noted patent and intact. Medications administered as per order. Safety precautions in place. Bed is in lowest position and locked. Call light within reach. All needs attended to promptly. Will endorse to continue plan of care as ordered.
[2020-11-22 08:00] VITALS: BP 126/75
[2020-11-22 08:42] LABS: EOSINOPHILS % (AUTO) 1.1 % (0.0-6.0); HEMATOCRIT 33 % (39-51); HEMOGLOBIN 11.1 g/dL (13.5-17.5); LYMPHOCYTES # (AUTO) 1.6 /CMM (0.8-4.8); LYMPHOCYTES % (AUTO) 8.3 % (20.0-44.0); MEAN CORPUSCULAR HGB CONC 33 g/dl (31.0-36.0); MEAN CORPUSCULAR VOLUME 98 fL (80-96); MONOCYTES # (AUTO) 0.8 /CMM (0.1-1.30); MONOCYTES % (AUTO) 4.1 % (2.0-12.0); NEUTROPHILS # (AUTO) 16.6 /CMM (1.8-8.9); NEUTROPHILS % (AUTO) 86.5 % (43.0-81.0); PLATELET COUNT (AUTO) 64 /CMM (150-450); RED BLOOD CELL COUNT(AUTO) 3.41 MIL/uL (4.5-6.0); WHITE BLOOD COUNT (AUTO) 19.2 K/uL (4.3-11.0)
[2020-11-22 08:51] LABS: CALCIUM, SERUM 8.4 mg/dL (8.5-10.1); CREATININE 0.3 mg/dL (0.6-1.3); MAGNESIUM 1.7 mg/dL (1.8-2.4); PHOSPHORUS 2.5 mg/dL (2.5-4.9); POTASSIUM 3.7 mmol/L (3.5-5.1)
[2020-11-22] MEDS: INSULIN GLARGINE, 100 UNIT/ML CARTRIDGE SQ SCH (09:00)
[2020-11-22] MEDS: CLOTRIMAZOLE 1% 15 GM TUBE TP SCH ×2 (09:00→17:10)
[2020-11-22] MEDS: FLUTICASONE/VILANTEROL 1 EACH BLST.W.DEV IH SCH (09:00)
[2020-11-22] MEDS: Z GUARD REMEDY 2 OZ OINT TP SCH (09:00)
[2020-11-22] MEDS: FOLIC ACID 1 MG TABLET PO SCH (09:41)
[2020-11-22] MEDS: SPIRONOLACTONE 25 MG TABLET PO SCH (09:41)
[2020-11-22] MEDS: PANTOPRAZOLE 40 MG TABLET.DR PO SCH (09:41)
[2020-11-22] MEDS: DULOXETINE HCL 30 MG CAPSULE.DR PO SCH ×2 (09:41→17:10)
[2020-11-22] MEDS: predniSONE 20 MG TABLET PO SCH (09:41)
[2020-11-22] MEDS: THIAMINE HCL 100 MG TABLET PO SCH (09:41)
[2020-11-22] MEDS: busPIRone 5 MG TABLET PO SCH ×3 (09:41→17:10)
[2020-11-22] MEDS: OXYMETAZOLINE HCL NASAL SPRAY 30 ML BOTTLE NS SCH ×2 (10:12→17:10)
[2020-11-22] MEDS: IV NS 0.9% 1,000 ML IV PRN (10:15)
[2020-11-22 12:00] VITALS: BP 108/71
[2020-11-22] MEDS ORDERED: PIPERACILLIN /TAZOBACTAM 3.375 G in IV D5W 50 ML IV SCH (12:00)
[2020-11-22] MEDS: Magnesium 1GM/D5W 100ML PREMIX 100 ML IV SCH ×2 (12:21→13:57)
[2020-11-22] MEDS ORDERED: VANCOMYCIN 1 GM in IV D5W 250 ML IV ONE (13:00)
[2020-11-22 16:00] VITALS: BP 109/70
[2020-11-22] MEDS: MEGESTROL ACETATE SUSP 400 MG/10 ML UDC PO SCH (17:10)
[2020-11-22] MEDS: INSULIN REGULAR, HUMAN 100 UNIT/ML 3 ML VIAL SQ PRN ×2 (17:49→22:13)
[2020-11-22 20:00] VITALS: BP 113/69
[2020-11-22] MEDS ORDERED: VANCOMYCIN 0.75 GM in IV D5W 250 ML IV SCH (21:00)
--- NOTE | 2020-11-22 21:03 | NUR ---
AM SHIFT REPORT PATIENT IN BED. A/O X 2. AFEBRILE. SOB NOTED. PATIENT PUT ON SEMI SILVA POSITION. NC ON 6L/MIN. IV SITE BRIAN PICC LINE, L HAND #20 G. ROUTINE MEDS WERE GIVEN. WOUNDS KEPT CLEAN AND DRY. PROVIDED SAFETY MEASURES. SIDE RAILS UP X2. CALL LIGHT WITHIN REACH. WILL ENDORSE TO SWIMMING POOL SERVICEPERSON FOR BAO.
[2020-11-22] MEDS: TRAZODONE 50 MG TABLET PO SCH (21:28)
[2020-11-22] MEDS: MEROPENEM 500 MG in IV NS 0.9% 50 ML IV SCH (21:40)
[2020-11-23] VITALS: BP 118/67
[2020-11-23] MEDS ORDERED: VANCOMYCIN 0.75 GM in IV D5W 250 ML IV SCH ×2
[2020-11-23] MEDS: IPRATROPIUM NEB FS 0.5 MG/2.5 ML AMPUL.NEB IH SCH ×7 (00:02→23:38)
[2020-11-23 04:00] VITALS: BP 108/71
[2020-11-23] MEDS: MEROPENEM 500 MG in IV NS 0.9% 50 ML IV SCH ×3 (05:14→21:31)
[2020-11-23] MEDS: INSULIN REGULAR, HUMAN 100 UNIT/ML 3 ML VIAL SQ PRN ×3 (06:43→22:08)
[2020-11-23] MEDS: BLOOD SUGAR DIAGNOSTIC 1 EACH STRIP IN SCH ×4 (06:43→22:03)
[2020-11-23 06:49] LABS: BASOPHILS % (AUTO) 0.1 % (0.0-2.0); EOSINOPHILS % (AUTO) 1.1 % (0.0-6.0); HEMATOCRIT 34 % (39-51); HEMOGLOBIN 11.4 g/dL (13.5-17.5); LYMPHOCYTES # (AUTO) 1.3 /CMM (0.8-4.8); LYMPHOCYTES % (AUTO) 6.8 % (20.0-44.0); MEAN CORPUSCULAR HGB CONC 34 g/dl (31.0-36.0); MEAN CORPUSCULAR VOLUME 98 fL (80-96); MONOCYTES # (AUTO) 0.9 /CMM (0.1-1.30); MONOCYTES % (AUTO) 4.7 % (2.0-12.0); NEUTROPHILS # (AUTO) 16.3 /CMM (1.8-8.9); NEUTROPHILS % (AUTO) 87.3 % (43.0-81.0); RED BLOOD CELL COUNT(AUTO) 3.48 MIL/uL (4.5-6.0); WHITE BLOOD COUNT (AUTO) 18.7 K/uL (4.3-11.0)
[2020-11-23 07:35] LABS: CREATININE 0.4 mg/dL (0.6-1.3); MAGNESIUM 2.3 mg/dL (1.8-2.4); PHOSPHORUS 2.3 mg/dL (2.5-4.9); POTASSIUM 3.7 mmol/L (3.5-5.1)
[2020-11-23 08:00] VITALS: BP 126/72
[2020-11-23] MEDS: SPIRONOLACTONE 25 MG TABLET PO SCH (08:25)
[2020-11-23] MEDS: PANTOPRAZOLE 40 MG TABLET.DR PO SCH (08:25)
[2020-11-23] MEDS: busPIRone 5 MG TABLET PO SCH ×3 (08:26→16:09)
[2020-11-23] MEDS: CLOTRIMAZOLE 1% 15 GM TUBE TP SCH ×2 (08:30→17:31)
--- NOTE | 2020-11-23 08:30 | NUR ---
RN NOTE RECEIVED REPORT FROM PARTS COORDINATOR. PATIENT IS IN BED. ALERT AND ORIENTED TO SELF. DENIES PAIN. PATIENT IS ON OXYGEN AT 5L/MIN VIA NASAL CANNULA. PATIENT IS NOTED TO HAVE LABORED BREATHING. ELEVATED HEAD OF BED. BED LOW AND LOCKED. SIDE RAILS UP X3. CALL LIGHT WITHIN REACH. WILL CONTINUE TO MONITOR. CALLED AUDIT SPEC TO BRING OCUMETER TO CHECK THE OXYGEN LEVEL.
[2020-11-23] MEDS: FLUTICASONE/VILANTEROL 1 EACH BLST.W.DEV IH SCH (08:31)
[2020-11-23] MEDS: OXYMETAZOLINE HCL NASAL SPRAY 30 ML BOTTLE NS SCH ×2 (08:31→16:09)
[2020-11-23] MEDS: FOLIC ACID 1 MG TABLET PO SCH (08:33)
[2020-11-23] MEDS: DULOXETINE HCL 30 MG CAPSULE.DR PO SCH ×2 (08:33→16:09)
[2020-11-23] MEDS: predniSONE 20 MG TABLET PO SCH (08:33)
[2020-11-23] MEDS: THIAMINE HCL 100 MG TABLET PO SCH (08:35)
--- NOTE | 2020-11-23 08:40 | NUR ---
RN NOTE PATIENT`S OXYGEN LEVEL IS AT 88% OXYGEN DELIVERING AT 7L/MIN VIA NASAL CANNULA. THE PATIENT IS PLACED ON OXYGEN 5.5L/VIA SIMPLE MASK. OXYGEN SATURATION IMPROVED TO 90%. WILL CONTINUE TO MONITOR.
[2020-11-23 08:45] LABS: PLATELET COUNT (AUTO) 37 /CMM (150-450)
--- NOTE | 2020-11-23 08:45 | NUR ---
RN NOTE REPORT GIVEN TO MISHEL KANG
[2020-11-23] MEDS: INSULIN GLARGINE, 100 UNIT/ML CARTRIDGE SQ SCH (09:00)
[2020-11-23 09:25] LABS: ABG BASE EXCESS 0.6 mmol/L; ABG OXYGEN SATURATION 91.6 % (92.0-98.5); ABG PCO2 35.3 mmHg (35.0-45.0); ABG PH 7.452 (7.350-7.450); ABG PO2 61.8 mmHg (75.0-100.0); AaDO2 327.2 mmHg; COHb 2.4 % (0.5-1.5); MetHb 0.1 % (0.0-1.5); O2Hb 89.3 % (94.0-97.0); SITE, ABG Right Radial; VENT MODE, BG Simple Mask
--- NOTE | 2020-11-23 09:25 | NUR ---
tele batch tank controller: notes bs iasgh=[id number], pt remains lethargic and with labored breathing. r.t. at bedside. pt status dnr/dni. little 8units held.
--- NOTE | 2020-11-23 10:23 | NUR ---
tele strategic consultant: notes cxr resulted. dr. erwin notified and made aware.
[2020-11-23] MEDS: Z GUARD REMEDY 2 OZ OINT TP SCH (10:32)
--- NOTE | 2020-11-23 10:55 | NUR ---
tele book author: notes pt is much better on a non-rebreather mask at 15l/min. r.t. to titrate prn. diana toth acnp at bedside and aware. for d'c planning to [facility] when bed is available.
--- NOTE | 2020-11-23 12:30 | NUR ---
m/s sound equipment mechanic: notes r.t. attempted to titrate to 10l/min via mask, but pt unable to tolerate, pt back to 100% non-rebreather mask at 15l/min. hob elevated. will continue to monitor.
[2020-11-23 16:00] VITALS: BP 108/68
[2020-11-23] MEDS ORDERED: K PHOS NEUTRAL 250 MG TABLET PO ONE (16:00)
[2020-11-23] MEDS: MEGESTROL ACETATE SUSP 400 MG/10 ML UDC PO SCH (16:09)
--- NOTE | 2020-11-23 16:09 | NUR ---
m/s machine stapler: notes pt remains lethargic, but breathing much better. held meds due to s.t. recommendation and pt condition. will continue to monitor.
[2020-11-23] MEDS: methylPREDNISolone SOD SUCC 125 MG/2ML VIAL IV SCH ×2 (17:32→22:03)
--- NOTE | 2020-11-23 18:15 | NUR ---
m/s manager outreach: notes pt remains on non-rebreather mask at 15l/min via n/c. pt unable to tolerate when r.t. attempted to titrate oxygen today. hob elevated. call light within reach. needs attended. will continue to monitor.
--- NOTE | 2020-11-23 19:10 | NUR ---
m/s pugger helper: notes report given to paty (rn) for continuity of care.
--- NOTE | 2020-11-23 20:34 | NUR ---
RN NOTE PER SILVINO, PHARMACIST, OK TO GIVE SOLU MEDROL SCHEDULED AT 2100 SINCE LAST DOSE WAS ADMINISTERED AT 1732. WILL CONTINUE TO MONITOR THE PATIENT.
[2020-11-23 21:00] VITALS: BP 105/69
[2020-11-23] MEDS: TRAZODONE 50 MG TABLET PO SCH (22:03)
[2020-11-24] MEDS: IPRATROPIUM NEB FS 0.5 MG/2.5 ML AMPUL.NEB IH SCH ×6 (03:18→23:13)
[2020-11-24] MEDS: MEROPENEM 500 MG in IV NS 0.9% 50 ML IV SCH ×3 (04:26→20:45)
[2020-11-24] MEDS: methylPREDNISolone SOD SUCC 125 MG/2ML VIAL IV SCH ×3 (04:27→20:47)
[2020-11-24 05:43] VITALS: BP 109/70
[2020-11-24 06:32] LABS: HEMATOCRIT 33 % (39-51); HEMOGLOBIN 11.2 g/dL (13.5-17.5); LYMPHOCYTES # (AUTO) 0.3 /CMM (0.8-4.8); LYMPHOCYTES % (AUTO) 3.1 % (20.0-44.0); MEAN CORPUSCULAR HGB CONC 34 g/dl (31.0-36.0); MEAN CORPUSCULAR VOLUME 99 fL (80-96); MONOCYTES # (AUTO) 0.1 /CMM (0.1-1.30); MONOCYTES % (AUTO) 1.3 % (2.0-12.0); NEUTROPHILS # (AUTO) 9.6 /CMM (1.8-8.9); NEUTROPHILS % (AUTO) 95.6 % (43.0-81.0); RED BLOOD CELL COUNT(AUTO) 3.38 MIL/uL (4.5-6.0)
[2020-11-24] MEDS: INSULIN REGULAR, HUMAN 100 UNIT/ML 3 ML VIAL SQ PRN ×3 (07:23→17:07)
[2020-11-24] MEDS: BLOOD SUGAR DIAGNOSTIC 1 EACH STRIP IN SCH ×3 (07:24→17:10)
[2020-11-24 07:46] LABS: CREATININE 0.4 mg/dL (0.6-1.3); PHOSPHORUS 3.2 mg/dL (2.5-4.9); POTASSIUM 4.5 mmol/L (3.5-5.1)
--- NOTE | 2020-11-24 07:48 | NUR ---
CLOSING NOTES: PATIENT IN BED, NO ACUTE DISTRESS NOTED, WITH O2 INHALATION ON GOING AT FACE MASK 10LPM. RIGHT UPPER ARM PICC LINE IN PLACE. IV HEPLOCK IN LEFT HAND IN PLACE. PATIENT ON SWALLOW PRECAUTIONS- FOLLOWED ORDERED. NEEDS ATTENDED. WILL ENDORSE PATIENT TO DAY SHIFT NURSE FOR CONTUNITY OF CARE.
[2020-11-24 08:00] VITALS: BP 135/79
[2020-11-24 09:13] LABS: PLATELET COUNT (AUTO) 96 /CMM (150-450)
[2020-11-24] MEDS: FLUTICASONE/VILANTEROL 1 EACH BLST.W.DEV IH SCH (09:31)
[2020-11-24] MEDS: CLOTRIMAZOLE 1% 15 GM TUBE TP SCH ×2 (09:32→17:15)
[2020-11-24] MEDS: Z GUARD REMEDY 2 OZ OINT TP SCH (09:32)
[2020-11-24] MEDS: OXYMETAZOLINE HCL NASAL SPRAY 30 ML BOTTLE NS SCH ×2 (09:33→17:16)
[2020-11-24] MEDS: SPIRONOLACTONE 25 MG TABLET PO SCH (09:33)
[2020-11-24] MEDS: FOLIC ACID 1 MG TABLET PO SCH (09:34)
[2020-11-24] MEDS: DULOXETINE HCL 30 MG CAPSULE.DR PO SCH ×2 (09:34→17:09)
[2020-11-24] MEDS: busPIRone 5 MG TABLET PO SCH ×3 (09:34→17:09)
[2020-11-24] MEDS: PANTOPRAZOLE 40 MG TABLET.DR PO SCH (09:34)
[2020-11-24] MEDS: THIAMINE HCL 100 MG TABLET PO SCH (09:34)
[2020-11-24] MEDS: INSULIN GLARGINE, 100 UNIT/ML CARTRIDGE SQ SCH (09:59)
[2020-11-24 11:11] LABS: LYMPHOCYTES % (MANUAL) 5 % (16-48); MONOCYTES % (MANUAL) 1 % (0-11.0); NEUTROPHILS % (MANUAL) 94 (42-76)
--- NOTE | 2020-11-24 14:00 | NUR ---
m/s fire captain: hydraulic spinner f/u seen by rizwan (chris) at this time.
[2020-11-24 16:00] VITALS: BP 110/74
[2020-11-24] MEDS: MEGESTROL ACETATE SUSP 400 MG/10 ML UDC PO SCH (17:09)
--- NOTE | 2020-11-24 19:05 | NUR ---
m/s barrel bung remover and dumper: notes report given to kentrell (rn) for continuity of care.
--- NOTE | 2020-11-24 19:37 | NUR ---
MS RN OPENING NOTES PT RECEIVED AT BEDSIDE. CALM, COOPERATIVE. ALERT AND ORIENTED X2-3. FOLLOWS SIMPLE COMMANDS. PT ON 10L SIMPLE MASK. TOLERATING WELL. NO SOB. EVEN AND UNLABORED BREATHING NOTED. BRIAN PICC, LFA #20. PATENT, INTACT, FLUSHING WELL. NO OCCLUSIONS, NO INFILTRATION. PENDING BARAKAT PLACEMENT. WILL CONTINUE TO MONITOR. WILL CONTINUE PLAN OF CARE.
[2020-11-24] MEDS: LORAZEPAM INJ 2 MG/ML VIAL IV PRN (20:49)
[2020-11-24 21:28] VITALS: BP 114/77
[2020-11-24] MEDS: TRAZODONE 50 MG TABLET PO SCH (22:35)
[2020-11-25] MEDS: BLOOD SUGAR DIAGNOSTIC 1 EACH STRIP IN SCH ×5 (00:10→22:18)
[2020-11-25] MEDS: INSULIN REGULAR, HUMAN 100 UNIT/ML 3 ML VIAL SQ PRN ×5 (00:18→22:37)
[2020-11-25] MEDS: IPRATROPIUM NEB FS 0.5 MG/2.5 ML AMPUL.NEB IH SCH ×6 (03:42→23:30)
[2020-11-25] MEDS: MEROPENEM 500 MG in IV NS 0.9% 50 ML IV SCH ×3 (04:17→21:49)
[2020-11-25] MEDS: methylPREDNISolone SOD SUCC 125 MG/2ML VIAL IV SCH ×3 (04:19→21:49)
[2020-11-25 06:58] LABS: HEMATOCRIT 31 % (39-51); HEMOGLOBIN 10.3 g/dL (13.5-17.5); LYMPHOCYTES # (AUTO) 0.3 /CMM (0.8-4.8); LYMPHOCYTES % (AUTO) 1.9 % (20.0-44.0); MEAN CORPUSCULAR HGB CONC 33 g/dl (31.0-36.0); MEAN CORPUSCULAR VOLUME 100 fL (80-96); MONOCYTES # (AUTO) 0.4 /CMM (0.1-1.30); MONOCYTES % (AUTO) 2.6 % (2.0-12.0); NEUTROPHILS # (AUTO) 15.1 /CMM (1.8-8.9); NEUTROPHILS % (AUTO) 95.5 % (43.0-81.0); RED BLOOD CELL COUNT(AUTO) 3.11 MIL/uL (4.5-6.0); WHITE BLOOD COUNT (AUTO) 15.8 K/uL (4.3-11.0)
--- NOTE | 2020-11-25 07:30 | NUR ---
MS RN CLOSING NOTES PT LAYING IN BED. CALM, COOPERATIVE. PT ALERT AND ORIENTED X1-2. PT PRESENTS PERIODS OF CONFUSION. PT NOW ON 6L NASAL CANNULA. TOLERATING WELL. NO SOB, EVEN AND UNLABORED BREATHING NOTED. 97% O2 SATURATION. WILL CONTINUE TO MONITOR O2. PT URINE OUTPUT MINIMAL. CLEAR, IMELDA. NO SEDIMENTS. BRIAN PICC, LFA #22. PATENT, INTACT. NO OCCLUSIONS, NO INFILTRATIONS. WILL CONTINUE ASPIRATIONS PRECAUTIONS. PUREE, THICKEN LIQUIDS.PENDING TRANSFER TO [facility]. WILL CONTINUE TO MONITOR. WILL CONTINUE PLAN OF CARE.
--- NOTE | 2020-11-25 07:30 | NUR ---
RN MED SURG3 PATIENT IN BED, NO S/S OF DISTRESS, A/O X2, ON 6L NC, O2 SAT >95%, USES URINAL TO VOID, SACRAL REDNESS WOUND CARE ORDERED AND REPOSITIONED REGULARLY, CARDIAC PUREE DIET, THICK LIQUIDS ONLY,M BRIAN PICC, L FA 20 GAUGE, IVS INTACT CLEAN DRY FLUSH WELL, BED IN LOWEST LOCKED POSITION, CALL LIGHT WITHIN REACH, SAFETY MEASURES IN PLACE, WILL CONTINUE TO MONITOR.
[2020-11-25 07:33] LABS: CALCIUM, SERUM 8.8 mg/dL (8.5-10.1); CREATININE 0.4 mg/dL (0.6-1.3); POTASSIUM 3.9 mmol/L (3.5-5.1)
[2020-11-25 07:58] LABS: PLATELET COUNT (AUTO) 79 /CMM (150-450)
[2020-11-25 08:00] VITALS: BP 110/74
[2020-11-25] MEDS: SPIRONOLACTONE 25 MG TABLET PO SCH (09:38)
[2020-11-25] MEDS: FOLIC ACID 1 MG TABLET PO SCH (09:38)
[2020-11-25] MEDS: THIAMINE HCL 100 MG TABLET PO SCH (09:38)
[2020-11-25] MEDS: PANTOPRAZOLE 40 MG TABLET.DR PO SCH (09:38)
[2020-11-25] MEDS: DULOXETINE HCL 30 MG CAPSULE.DR PO SCH ×2 (09:39→17:25)
[2020-11-25] MEDS: busPIRone 5 MG TABLET PO SCH ×3 (09:39→17:25)
[2020-11-25] MEDS: INSULIN GLARGINE, 100 UNIT/ML CARTRIDGE SQ SCH (09:42)
[2020-11-25] MEDS: CLOTRIMAZOLE 1% 15 GM TUBE TP SCH ×2 (09:45→17:26)
[2020-11-25] MEDS: Z GUARD REMEDY 2 OZ OINT TP SCH (09:46)
[2020-11-25] MEDS: FLUTICASONE/VILANTEROL 1 EACH BLST.W.DEV IH SCH (09:46)
[2020-11-25] MEDS: OXYMETAZOLINE HCL NASAL SPRAY 30 ML BOTTLE NS SCH ×2 (09:47→17:25)
--- NOTE | 2020-11-25 10:45 | NUR ---
patient reported anxiety that is unrelieved and has been continuing for the past few days. will provided ativan and reassess effect.
[2020-11-25 16:00] VITALS: BP 121/71
[2020-11-25] MEDS: MEGESTROL ACETATE SUSP 400 MG/10 ML UDC PO SCH (17:24)
--- NOTE | 2020-11-25 19:14 | NUR ---
RN MED SURG3 PATIENT IN BED, NO S/S OF DISTRESS, A/O X1, ON 6L NC, O2 SAT >95%, USES URINAL TO VOID OCCASIONALLY, INCONTINENT MOST OF THE SHIFT, CLEANED REGULARLY, SACRAL REDNESS WOUND CARE ORDERED AND REPOSITIONED REGULARLY, CARDIAC PUREE DIET, THICK LIQUIDS ONLY, BRIAN PICC, L FA 20 GAUGE, IVS INTACT CLEAN DRY FLUSH WELL, BED IN LOWEST LOCKED POSITION, CALL LIGHT WITHIN REACH, SAFETY MEASURES IN PLACE, WILL CONTINUE TO MONITOR.
--- NOTE | 2020-11-25 19:50 | NUR ---
MS SPECIAL EDUCATION BUS DRIVER INITIAL NOTES RECEIVED REPORT FROM AM NURSE AND SEEN PT IN BED ON SITTING POSITION RESTING WITH EYES CLOSED WITH O2 AT 6 LITERS VIA NASAL CANULA , NO SIGNS OF ANY ACUTE DISTRESS NOTED. HE ALSO ON IVF D5NS AT 75ML/HR INFUSING AT THIS TIME. KEPT HIM WARM AND COMFORTABLE AT ALL TIMES. KEPT HIM WARM AND COMFORTABLE AT ALL TIMES. PLACE CALL LIGHT AT REACH. WILL CONTINUE MONITORING.
[2020-11-25 20:00] VITALS: BP 120/79
--- NOTE | 2020-11-25 22:15 | NUR ---
ms dae notes' routine meds given with apple sauced and aspiration precaution observed. kept him on semi fowlers position with side rails x2 up. will continue monitoring.
[2020-11-25] MEDS: TRAZODONE 50 MG TABLET PO SCH (22:18)
--- NOTE | 2020-11-26 | NUR ---
ms ostomy care nurse notes' pt sleeping comfortably in bed without any acute distress noted at this time. respiration even and non labored. will continue monitoring.
[2020-11-26] MEDS: IPRATROPIUM NEB FS 0.5 MG/2.5 ML AMPUL.NEB IH SCH ×6 (03:21→23:34)
[2020-11-26] MEDS: MEROPENEM 500 MG in IV NS 0.9% 50 ML IV SCH ×3 (04:54→20:11)
[2020-11-26] MEDS: methylPREDNISolone SOD SUCC 125 MG/2ML VIAL IV SCH ×2 (04:57→12:44)
--- NOTE | 2020-11-26 05:03 | NUR ---
telecommunication engineer notes pt remains sleeping . due meds given by another nurse as ordered.will continue monitoring.
[2020-11-26] MEDS: BLOOD SUGAR DIAGNOSTIC 1 EACH STRIP IN SCH ×4 (06:27→21:46)
[2020-11-26] MEDS: INSULIN REGULAR, HUMAN 100 UNIT/ML 3 ML VIAL SQ PRN ×4 (06:29→21:49)
[2020-11-26 06:33] LABS: HEMATOCRIT 34 % (39-51); LYMPHOCYTES # (AUTO) 0.3 /CMM (0.8-4.8); LYMPHOCYTES % (AUTO) 2.7 % (20.0-44.0); MEAN CORPUSCULAR HGB CONC 33 g/dl (31.0-36.0); MEAN CORPUSCULAR VOLUME 101 fL (80-96); MONOCYTES # (AUTO) 0.4 /CMM (0.1-1.30); NEUTROPHILS # (AUTO) 11.3 /CMM (1.8-8.9); NEUTROPHILS % (AUTO) 94.3 % (43.0-81.0); RED BLOOD CELL COUNT(AUTO) 3.34 MIL/uL (4.5-6.0)
--- NOTE | 2020-11-26 06:50 | NUR ---
ms entry level sales consultant closing notes pt sleeping at this time but arouse easily. blood sugar checked done 163 , 3units of insulin given brittney IVP as ordered. no signs of hyper /hypo glycemia noted. all due meds given and patient stable troughout the night. kept him warm and comfortable at all times. hob elevated at 30 degree per aspiration precaution. bed in low and lock in position with side rails x2 up . will endorse to am nurse for continuity of care.
[2020-11-26 07:01] LABS: CREATININE 0.5 mg/dL (0.6-1.3); POTASSIUM 4.1 mmol/L (3.5-5.1)
[2020-11-26 07:09] LABS: D-DIMER 2.2 mg/L(FEU (0.17-0.50)
--- NOTE | 2020-11-26 07:35 | NUR ---
TELE/RN OPENING NOTES RECEIVED PATIENT ON BED AWAKE ALERT AND ORIENTED X1-2. PATIENT IN NO APPARENT RESPIRATORY DISTRESS NOTED. NO SIGN AND SYMPTOM OF PAIN NOTED AT THIS TIME. WILL CONTINUE TO MONITOR.
[2020-11-26 08:00] VITALS: BP 111/83
[2020-11-26] MEDS: SPIRONOLACTONE 25 MG TABLET PO SCH (09:08)
[2020-11-26] MEDS: busPIRone 5 MG TABLET PO SCH ×3 (09:08→17:16)
[2020-11-26] MEDS: FOLIC ACID 1 MG TABLET PO SCH (09:08)
[2020-11-26] MEDS: THIAMINE HCL 100 MG TABLET PO SCH (09:08)
[2020-11-26] MEDS: DULOXETINE HCL 30 MG CAPSULE.DR PO SCH ×2 (09:08→17:17)
[2020-11-26] MEDS: PANTOPRAZOLE 40 MG TABLET.DR PO SCH (09:09)
[2020-11-26] MEDS: FLUTICASONE/VILANTEROL 1 EACH BLST.W.DEV IH SCH (09:17)
[2020-11-26] MEDS: OXYMETAZOLINE HCL NASAL SPRAY 30 ML BOTTLE NS SCH ×2 (09:18→17:20)
[2020-11-26] MEDS: Z GUARD REMEDY 2 OZ OINT TP SCH (09:19)
[2020-11-26] MEDS: CLOTRIMAZOLE 1% 15 GM TUBE TP SCH ×2 (09:20→17:17)
[2020-11-26] MEDS: INSULIN GLARGINE, 100 UNIT/ML CARTRIDGE SQ SCH (09:27)
[2020-11-26 10:50] LABS: PLATELET COUNT (AUTO) 65 /CMM (150-450)
[2020-11-26 10:52] LABS: LYMPHOCYTES % (MANUAL) 2 % (16-48); MONOCYTES % (MANUAL) 2 % (0-11.0); NEUTROPHILS % (MANUAL) 96 (42-76)
--- NOTE | 2020-11-26 13:31 | NUR ---
RN NOTES GIVE REPORT TO ARACELI FLORENTINO FOR [facility].
[2020-11-26 16:00] VITALS: BP 122/81
[2020-11-26] MEDS: MEGESTROL ACETATE SUSP 400 MG/10 ML UDC PO SCH (17:16)
--- NOTE | 2020-11-26 18:43 | NUR ---
MS/RN - End of shift summary No new issues, A/O x 1-2, forgetful, remain afebrile, comfortable on oxygen at 6lpm via NC, less congested, appetite improved. Fall and aspiration precautions maintained. Will continue with current medical management.
--- NOTE | 2020-11-26 19:52 | NUR ---
RN OTES PT RECEIVED ALERT AND ORIENTED 1-2X NO PAIN OR DISCOMFORT VISIBLE ORE REPORTED AT THIS TIME TO RESPIRATORY DISTRESS NOTED AT THIS TIME. BRIAN PICC LINE INTACT NO REDNESS OR SWELLING NOTED AT SITE.ASPIRATION PRECAUTIONS FOLLOWED. CALL LIGHT WITHIN REACH. SIDE RAILS UP X2, BED IN A LOW LOCKED POSITION. WILL CONTINUE TO MONITOR.
[2020-11-26 20:00] VITALS: BP 110/74
[2020-11-26] MEDS: methylPREDNISolone SOD SUCC 40 MG/ML VIAL IV SCH (20:53)
[2020-11-26] MEDS: TRAZODONE 50 MG TABLET PO SCH (21:03)
[2020-11-27] MEDS: LORAZEPAM INJ 2 MG/ML VIAL IV PRN (02:02)
[2020-11-27] MEDS: IPRATROPIUM NEB FS 0.5 MG/2.5 ML AMPUL.NEB IH SCH ×6 (03:50→22:39)
[2020-11-27] MEDS: MEROPENEM 500 MG in IV NS 0.9% 50 ML IV SCH ×3 (04:01→22:02)
[2020-11-27] MEDS: BLOOD SUGAR DIAGNOSTIC 1 EACH STRIP IN SCH ×4 (06:22→22:05)
[2020-11-27] MEDS: INSULIN REGULAR, HUMAN 100 UNIT/ML 3 ML VIAL SQ PRN ×4 (06:29→22:19)
--- NOTE | 2020-11-27 06:50 | NUR ---
RN NOTES PT ALERT AND ORIENTED 1-2X NO PAIN OR DISCOMFORT VISIBLE ORE REPORTED AT THIS TIME TO RESPIRATORY DISTRESS NOTED AT THIS TIME. BRIAN PICC LINE INTACT NO REDNESS OR SWELLING NOTED AT SITE.ASPIRATION PRECAUTIONS FOLLOWED. ON 6L OF OXYGEN VIA NASAL CANNULA.CALL LIGHT WITHIN REACH. SIDE RAILS UP X2, BED IN A LOW LOCKED POSITION. WILL ENDORSE CARE TO DAY SHIFT NURSE..
--- NOTE | 2020-11-27 07:14 | NUR ---
MS/RN OPENING NOTES RECEIVED PATIENT ON BED AWAKE ALERT AND ORIENTED X 1-2. PATIENT IS ON 6L OXYGEN VIA NASAL CANNULA PATIENT IN NO APPARENT RESPIRATORY DISTRESS NOTED. NO COMPLAINED OF PAIN NOTED AT THIS TIME. WILL CONTINUE TO MONITOR.
[2020-11-27 08:00] VITALS: BP 113/87
[2020-11-27 08:38] LABS: CALCIUM, SERUM 9.2 mg/dL (8.5-10.1); CREATININE 0.4 mg/dL (0.6-1.3); POTASSIUM 4.1 mmol/L (3.5-5.1)
[2020-11-27] MEDS: DULOXETINE HCL 30 MG CAPSULE.DR PO SCH ×2 (08:44→16:40)
[2020-11-27] MEDS: methylPREDNISolone SOD SUCC 40 MG/ML VIAL IV SCH ×2 (08:44→22:01)
[2020-11-27] MEDS: busPIRone 5 MG TABLET PO SCH ×3 (08:44→16:40)
[2020-11-27] MEDS: PANTOPRAZOLE 40 MG TABLET.DR PO SCH (08:44)
[2020-11-27] MEDS: FOLIC ACID 1 MG TABLET PO SCH (08:44)
[2020-11-27] MEDS: SPIRONOLACTONE 25 MG TABLET PO SCH (08:44)
[2020-11-27] MEDS: THIAMINE HCL 100 MG TABLET PO SCH (08:44)
[2020-11-27] MEDS: INSULIN GLARGINE, 100 UNIT/ML CARTRIDGE SQ SCH (09:07)
[2020-11-27 09:14] LABS: BASOPHILS % (AUTO) 0.1 % (0.0-2.0); EOSINOPHILS % (AUTO) 0.1 % (0.0-6.0); HEMATOCRIT 34 % (39-51); HEMOGLOBIN 11.1 g/dL (13.5-17.5); LYMPHOCYTES # (AUTO) 0.4 /CMM (0.8-4.8); LYMPHOCYTES % (AUTO) 2.4 % (20.0-44.0); MEAN CORPUSCULAR HGB CONC 33 g/dl (31.0-36.0); MEAN CORPUSCULAR VOLUME 100 fL (80-96); MONOCYTES # (AUTO) 0.5 /CMM (0.1-1.30); MONOCYTES % (AUTO) 3.1 % (2.0-12.0); NEUTROPHILS # (AUTO) 15.4 /CMM (1.8-8.9); NEUTROPHILS % (AUTO) 94.3 % (43.0-81.0); RED BLOOD CELL COUNT(AUTO) 3.41 MIL/uL (4.5-6.0); WHITE BLOOD COUNT (AUTO) 16.3 K/uL (4.3-11.0)
[2020-11-27] MEDS: CLOTRIMAZOLE 1% 15 GM TUBE TP SCH ×2 (09:19→16:45)
[2020-11-27] MEDS: Z GUARD REMEDY 2 OZ OINT TP SCH (09:19)
[2020-11-27] MEDS: FLUTICASONE/VILANTEROL 1 EACH BLST.W.DEV IH SCH (09:21)
[2020-11-27] MEDS: OXYMETAZOLINE HCL NASAL SPRAY 30 ML BOTTLE NS SCH ×2 (09:22→17:06)
[2020-11-27 09:26] LABS: PLATELET COUNT (AUTO) 32 /CMM (150-450)
--- NOTE | 2020-11-27 09:41 | NUR ---
RN/NOTES PLATELET 32 DR. YING IS AWARE NO NEW ORDER AT THIS TIME. WILL CONTINUE TO MONITOR.
[2020-11-27 16:00] VITALS: BP 112/79
[2020-11-27] MEDS: MEGESTROL ACETATE SUSP 400 MG/10 ML UDC PO SCH (16:40)
[2020-11-27] MEDS: LACTULOSE 10 G/15 ML UDC (PYXIS) PO PRN ×2 (17:36→22:02)
--- NOTE | 2020-11-27 18:58 | NUR ---
MS/RN CLOSING NOTES PATIENTS IS ON BED. ALERT AND ORIENTED X 2-3. PATIENT IS ON 6 L OXYGEN VIA NASAL CANNULA SATURATIONS 96%. NO COMPLAINED OF PAIN AT THIS TIME. SEEN AND EXAMINED BY MD WITH ORDERS MADE CARRIED OUT. ALL DUE MEDICATIONS WAS GIVEN. SAFETY PRECAUTION WAS IN PLACED. BED IN LOWEST POSITION AND LOCKED. CALL LIGHT WITHIN REACH. WILL ENDORSED TO ASSET MANAGEMENT COORDINATOR FOR [facility].
[2020-11-27 20:00] VITALS: BP 106/70
[2020-11-27] MEDS: TRAZODONE 50 MG TABLET PO SCH (22:02)
[2020-11-28] MEDS: IPRATROPIUM NEB FS 0.5 MG/2.5 ML AMPUL.NEB IH SCH ×5 (02:46→20:07)
[2020-11-28] MEDS: MEROPENEM 500 MG in IV NS 0.9% 50 ML IV SCH ×3 (04:40→21:14)
[2020-11-28] MEDS: BLOOD SUGAR DIAGNOSTIC 1 EACH STRIP IN SCH ×3 (06:20→17:11)
[2020-11-28] MEDS: INSULIN REGULAR, HUMAN 100 UNIT/ML 3 ML VIAL SQ PRN ×3 (06:22→17:11)
[2020-11-28] MEDS: PANTOPRAZOLE 40 MG TABLET.DR PO SCH (06:24)
--- NOTE | 2020-11-28 06:46 | NUR ---
MS/RN CLOSING NOTES PATIENTS IN BED. ALERT AND ORIENTED X 2. PATIENT IS ON 6 L OXYGEN VIA NASAL CANNULA DENIES SOB. DENIES PAIN AT THIS TIME. SAFETY PRECAUTION WAS IN PLACED. BED IN LOWEST POSITION AND LOCKED. CALL LIGHT WITHIN REACH. WILL ENDORSED ONCOMING SHIFT FOR [facility].
[2020-11-28 07:03] LABS: HEMATOCRIT 34 % (39-51); HEMOGLOBIN 11.1 g/dL (13.5-17.5); LYMPHOCYTES # (AUTO) 0.3 /CMM (0.8-4.8); LYMPHOCYTES % (AUTO) 2.6 % (20.0-44.0); MEAN CORPUSCULAR HGB CONC 33 g/dl (31.0-36.0); MEAN CORPUSCULAR VOLUME 100 fL (80-96); MONOCYTES # (AUTO) 0.3 /CMM (0.1-1.30); MONOCYTES % (AUTO) 2.4 % (2.0-12.0); NEUTROPHILS # (AUTO) 11.7 /CMM (1.8-8.9); RED BLOOD CELL COUNT(AUTO) 3.38 MIL/uL (4.5-6.0); WHITE BLOOD COUNT (AUTO) 12.3 K/uL (4.3-11.0)
[2020-11-28 07:16] LABS: ALBUMIN 1.8 g/dL (3.4-5.0); BILIRUBIN,TOTAL 2.2 mg/dL (0.2-1.0); CALCIUM, SERUM 8.8 mg/dL (8.5-10.1); CREATININE 0.5 mg/dL (0.6-1.3); MAGNESIUM 1.9 mg/dL (1.8-2.4); PHOSPHORUS 3.1 mg/dL (2.5-4.9); POTASSIUM 4.3 mmol/L (3.5-5.1)
--- NOTE | 2020-11-28 07:40 | NUR ---
MS/RN NOTE THE PATIENT IS RECEIVED IN BED. PATIENT IS ALERT AND ORIENTED X1, ABLE TO MAKE NEEDS KNOWN VERBALLY. DENIES PAIN. PATIENT RECEIVING OXYGEN AT 6L/MIN VIA NASAL CANNULA AND DENIES SOB. NOTED SOB WITH EXERTION. RIGHT UPPER ARM PICC LINE PATENT AND SALINE LOCKED. BED LOW AND LOCKED. SIDE RAILS UP X3. CALL LIGHT WITHIN REACH. WILL CONTINUE TO MONITOR
[2020-11-28 08:00] VITALS: BP 113/66
[2020-11-28] MEDS: methylPREDNISolone SOD SUCC 40 MG/ML VIAL IV SCH ×2 (08:47→21:19)
[2020-11-28] MEDS: SPIRONOLACTONE 25 MG TABLET PO SCH (08:47)
[2020-11-28] MEDS: FOLIC ACID 1 MG TABLET PO SCH (08:47)
[2020-11-28] MEDS: busPIRone 5 MG TABLET PO SCH ×3 (08:47→17:14)
[2020-11-28] MEDS: THIAMINE HCL 100 MG TABLET PO SCH (08:47)
[2020-11-28] MEDS: DULOXETINE HCL 30 MG CAPSULE.DR PO SCH ×2 (08:47→17:14)
[2020-11-28] MEDS: FLUTICASONE/VILANTEROL 1 EACH BLST.W.DEV IH SCH (08:58)
[2020-11-28] MEDS: INSULIN GLARGINE, 100 UNIT/ML CARTRIDGE SQ SCH (08:59)
[2020-11-28] MEDS: CLOTRIMAZOLE 1% 15 GM TUBE TP SCH ×2 (09:00→17:00)
[2020-11-28] MEDS: OXYMETAZOLINE HCL NASAL SPRAY 30 ML BOTTLE NS SCH ×2 (09:00→17:00)
--- NOTE | 2020-11-28 10:19 | NUR ---
MS/RN NOTE AFRIN DUE AT 0900 IS NOT ADMINISTERED YET BECAUSE THE MEDICATION IS NOT DELIVERED BY THE PHARMACY. FOLLOW UP CALL TO PHARMACY IS MADE. WILL ADMINISTER ONCE THE PATIENT IS DELIVERED.
[2020-11-28] MEDS: Z GUARD REMEDY 2 OZ OINT TP SCH (10:40)
[2020-11-28 12:03] LABS: PLATELET COUNT (AUTO) 31 /CMM (150-450)
[2020-11-28 12:06] LABS: LYMPHOCYTES % (MANUAL) 3 % (16-48); MONOCYTES % (MANUAL) 1 % (0-11.0); NEUTROPHILS % (MANUAL) 96 (42-76)
[2020-11-28 16:03] VITALS: BP 118/76
[2020-11-28] MEDS: MEGESTROL ACETATE SUSP 400 MG/10 ML UDC PO SCH (17:14)
[2020-11-28] MEDS: LACTULOSE 10 G/15 ML UDC (PYXIS) PO PRN (17:56)
--- NOTE | 2020-11-28 18:31 | NUR ---
MS/RN CLOSING NOTE THE PATIENT IS ALERT AND ORIENTED X2 WITH EPISODES OF FORGETFULNESS. DENIES PAIN. PATIENT RECEIVING OXYGEN AT 5L/MIN VIA NASAL CANNULA AND OXYGEN SATURATION IS AT 97%. DENIES SOB. RESPIRATION REGULAR AND UNLABORED AT THIS TIME BUT HE GET SOB WITH EXERTION. BRIAN PICC LINE PATENT AND SALINE LOCKED. BED LOW AND LOCKED. SIDE RAILS UP X3. CALL LIGHT WITHIN REACH. WILL ENDORSE TO PAYROLL BENEFITS ADMINISTRATOR.
--- NOTE | 2020-11-28 19:20 | NUR ---
RN NOTE Patient Received. Patient is noted in bed, awake, alert and oriented x2. Breathing even and non labored continues on 6L via NC with no signs of acute distress of shortness of breath. IV site is noted to BRIAN PICC line noted patent and intact. Safety precautions in place with bed noted in lowest position and locked. Call light within reach. All needs attended to promptly. Will continue plan of care as ordered.
[2020-11-28 20:00] VITALS: BP 111/70
[2020-11-28] MEDS: TRAZODONE 50 MG TABLET PO SCH (21:19)
[2020-11-29] MEDS: BLOOD SUGAR DIAGNOSTIC 1 EACH STRIP IN SCH ×5 (00:22→22:29)
[2020-11-29] MEDS: INSULIN REGULAR, HUMAN 100 UNIT/ML 3 ML VIAL SQ PRN ×5 (00:26→23:25)
[2020-11-29] MEDS: IPRATROPIUM NEB FS 0.5 MG/2.5 ML AMPUL.NEB IH SCH ×7 (02:29→23:31)
[2020-11-29] MEDS: LACTULOSE 10 G/15 ML UDC (PYXIS) PO PRN ×2 (03:52→16:11)
--- NOTE | 2020-11-29 07:21 | NUR ---
RN NOTE Patient is noted in bed, awake, alert and oriented x1-2. Breathing even and non labored continues on 6L via NC with no signs of acute distress of shortness of breath. IV site is noted to BRIAN PICC line noted patent and intact. Safety precautions in place with bed noted in lowest position and locked. Call light within reach. All needs attended to promptly. Will endorse to continue plan of care as ordered.
--- NOTE | 2020-11-29 07:30 | NUR ---
MS/RN OPENING NOTE THE PATIENT IS RECEIVED IN BED. PATIENT IS ALERT AND ORIENTED TO SELF, ABLE TO MAKE NEEDS KNOWN VERBALLY. DENIES PAIN. PATIENT IS RECEIVING OXYGEN AT 5L/MIN VIA NASAL CANNULA AND DENIES SOB. BRIAN MIDLINE PATENT AND SALINE LOCKED. BED LOW AND LOCKED. SIDE RAILS UP X3. CALL LIGHT WITHIN REACH. WILL CONTINUE TO MONITOR.
[2020-11-29 07:52] LABS: BASOPHILS % (AUTO) 0.2 % (0.0-2.0); HEMATOCRIT 35 % (39-51); HEMOGLOBIN 11.6 g/dL (13.5-17.5); LYMPHOCYTES # (AUTO) 0.5 /CMM (0.8-4.8); LYMPHOCYTES % (AUTO) 2.7 % (20.0-44.0); MEAN CORPUSCULAR HGB CONC 33 g/dl (31.0-36.0); MEAN CORPUSCULAR VOLUME 101 fL (80-96); MONOCYTES # (AUTO) 0.4 /CMM (0.1-1.30); NEUTROPHILS # (AUTO) 16.9 /CMM (1.8-8.9); NEUTROPHILS % (AUTO) 95.1 % (43.0-81.0); RED BLOOD CELL COUNT(AUTO) 3.52 MIL/uL (4.5-6.0); WHITE BLOOD COUNT (AUTO) 17.7 K/uL (4.3-11.0)
[2020-11-29 08:16] LABS: PLATELET COUNT (AUTO) 26 /CMM (150-450)
[2020-11-29 08:40] LABS: ALBUMIN 1.9 g/dL (3.4-5.0); BILIRUBIN,TOTAL 2.4 mg/dL (0.2-1.0); CALCIUM, SERUM 9.2 mg/dL (8.5-10.1); CREATININE 0.5 mg/dL (0.6-1.3); PHOSPHORUS 2.8 mg/dL (2.5-4.9); POTASSIUM 4.4 mmol/L (3.5-5.1); TOTAL PROTEIN, SERUM 6.2 g/dL (6.4-8.2)
[2020-11-29] MEDS: SPIRONOLACTONE 25 MG TABLET PO SCH (08:41)
[2020-11-29] MEDS: PANTOPRAZOLE 40 MG TABLET.DR PO SCH (08:41)
[2020-11-29] MEDS: methylPREDNISolone SOD SUCC 40 MG/ML VIAL IV SCH (08:41)
[2020-11-29] MEDS: busPIRone 5 MG TABLET PO SCH ×3 (08:41→16:12)
[2020-11-29] MEDS: THIAMINE HCL 100 MG TABLET PO SCH (08:41)
[2020-11-29] MEDS: DULOXETINE HCL 30 MG CAPSULE.DR PO SCH ×2 (08:41→16:12)
[2020-11-29] MEDS: FOLIC ACID 1 MG TABLET PO SCH (08:41)
[2020-11-29] MEDS: INSULIN GLARGINE, 100 UNIT/ML CARTRIDGE SQ SCH (08:49)
[2020-11-29] MEDS: CLOTRIMAZOLE 1% 15 GM TUBE TP SCH ×2 (09:04→16:14)
[2020-11-29] MEDS: Z GUARD REMEDY 2 OZ OINT TP SCH (09:04)
[2020-11-29] MEDS: FLUTICASONE/VILANTEROL 1 EACH BLST.W.DEV IH SCH (09:31)
[2020-11-29] MEDS: OXYMETAZOLINE HCL NASAL SPRAY 30 ML BOTTLE NS SCH ×2 (09:31→16:12)
--- NOTE | 2020-11-29 12:00 | NUR ---
MS/RN NOTE DR STEEL IS AWARE OF PLATELET COUNT OF 26 AND PER MD NO NEW ORDERS.
[2020-11-29] MEDS: MEGESTROL ACETATE SUSP 400 MG/10 ML UDC PO SCH (16:11)
--- NOTE | 2020-11-29 18:55 | NUR ---
MS/RN NOTE PATIENT ALERT AND ORIENTED X1, ABLE TO MAKE NEEDS KNOWN VERBALLY. DENIES PAIN. ON OXYGEN AT 5L/MIN VIA NASAL CANNULA AND SATURATION IS AT 96%. DENIES SOB. RESPIRATION REGULAR AND UNLABORED WITH EPISODES OF SOB WITH EXCERPTION. BRIAN PICC LINE PATENT AND SALINE LOCKED. BED LOW AND LOCKED. SIDE RAILS UP X3. CALL LIGHT WITHIN REACH. WILL ENDORSE TO FIRST ASSIST.
--- NOTE | 2020-11-29 20:47 | NUR ---
MS RN OPENING NOTE: RECEIVED PATIENT ON BED, AWAKE, A/O X1-2. ON O2 5LITERS VIA NC. NO S/S OF RESPIRATORY DISTRESS, NO C/O PAIN, PATIENT IS ABLE TO MAKE NEEDS KNOWN. SAFETY PRECAUTIONS ARE IN PLACE. BED LOCKED AND IN THE LOWEST POSITION. SIDE RAILS UP X2, CALL LIGHT WITHIN REACH. WILL CONTINUE TO MONITOR THROUGHOUT SHIFT.
[2020-11-29] MEDS: TRAZODONE 50 MG TABLET PO SCH (22:30)
[2020-11-30] MEDS: IPRATROPIUM NEB FS 0.5 MG/2.5 ML AMPUL.NEB IH SCH ×6 (03:52→23:25)
--- NOTE | 2020-11-30 07:00 | NUR ---
MOTOR REBUILDER OPENING NOTE RECEIVED PT AWAKE IN BED AT THIS TIME. PT AOX1-2. PT ABLE TO MAKE NEEDS KNOWN. NO SOB NOTED, NO S/S OF ANY APPARENT DISTRESS NOTED, NO C/O PAIN AT THIS TIME. PT NOTED ON OXYGEN @ 5LPM VIA NC WITH SPO2 94%. PT NOTED WITH MULTIPLE SKIN DISCOLORATION. BRIAN PICC LINE IN PLACE, INTACT, PATENT AND FLUSHING WELL. ASPIRATIONS AND SAFETY PRECAUTIONS IN PLACE AND MAINTAINED AT ALL TIMES. BED IN LOWEST LOCKED POSITION, SIDE RAILS UP, HOB ELEVATED, TABLE AND CALL LIGHT WITHIN REACH. WILL CONTINUE TO MONITOR.
[2020-11-30 07:29] LABS: BASOPHILS % (AUTO) 0.1 % (0.0-2.0); EOSINOPHILS % (AUTO) 0.8 % (0.0-6.0); HEMATOCRIT 32 % (39-51); HEMOGLOBIN 10.9 g/dL (13.5-17.5); LYMPHOCYTES # (AUTO) 1.1 /CMM (0.8-4.8); LYMPHOCYTES % (AUTO) 7.5 % (20.0-44.0); MEAN CORPUSCULAR HGB CONC 34 g/dl (31.0-36.0); MEAN CORPUSCULAR VOLUME 100 fL (80-96); MONOCYTES # (AUTO) 0.5 /CMM (0.1-1.30); MONOCYTES % (AUTO) 3.1 % (2.0-12.0); NEUTROPHILS # (AUTO) 13.2 /CMM (1.8-8.9); NEUTROPHILS % (AUTO) 88.5 % (43.0-81.0); RED BLOOD CELL COUNT(AUTO) 3.26 MIL/uL (4.5-6.0); WHITE BLOOD COUNT (AUTO) 14.9 K/uL (4.3-11.0)
[2020-11-30] MEDS: BLOOD SUGAR DIAGNOSTIC 1 EACH STRIP IN SCH ×4 (07:39→21:34)
[2020-11-30 07:45] LABS: CALCIUM, SERUM 8.8 mg/dL (8.5-10.1); CREATININE 0.4 mg/dL (0.6-1.3); MAGNESIUM 1.7 mg/dL (1.8-2.4); PHOSPHORUS 2.3 mg/dL (2.5-4.9); POTASSIUM 4.2 mmol/L (3.5-5.1)
--- NOTE | 2020-11-30 07:57 | NUR ---
MS RN CLOSING NOTE: PATIENT ON BED, AWAKE, A/O X1-2. ON O2 5LITERS VIA NC. NO S/S OF RESPIRATORY DISTRESS, SKIN CHECK DONE, PICTURES TAKEN AND PLACED IN CHART. NO C/O PAIN, PATIENT IS ABLE TO MAKE NEEDS KNOWN. SAFETY PRECAUTIONS ARE IN PLACE. BED LOCKED AND IN THE LOWEST POSITION. SIDE RAILS UP X2, CALL LIGHT WITHIN REACH. REPORT GIVEN TO AM SHIFT.
[2020-11-30 08:00] VITALS: BP 92/63
--- NOTE | 2020-11-30 08:00 | NUR ---
JOSÉ ANTONIO, FUR DRESSER REPORTED PLATELET COUNT [id number], REPORT READ BACK. DR STEEL AND CONCEPCION, CHARGE NURSE MADE AWARE. AWAITING ORDERS. WILL CONTINUE TO MONITOR
[2020-11-30] MEDS: THIAMINE HCL 100 MG TABLET PO SCH (08:56)
[2020-11-30] MEDS: SPIRONOLACTONE 25 MG TABLET PO SCH (08:56)
[2020-11-30] MEDS: PANTOPRAZOLE 40 MG TABLET.DR PO SCH (08:56)
[2020-11-30] MEDS: busPIRone 5 MG TABLET PO SCH ×3 (08:57→16:53)
[2020-11-30] MEDS: DULOXETINE HCL 30 MG CAPSULE.DR PO SCH ×2 (08:57→16:53)
[2020-11-30] MEDS: methylPREDNISolone SOD SUCC 40 MG/ML VIAL IV SCH (08:57)
[2020-11-30] MEDS: FOLIC ACID 1 MG TABLET PO SCH (08:57)
[2020-11-30] MEDS: INSULIN GLARGINE, 100 UNIT/ML CARTRIDGE SQ SCH (08:59)
[2020-11-30] MEDS: INSULIN REGULAR, HUMAN 100 UNIT/ML 3 ML VIAL SQ PRN ×4 (09:00→21:32)
[2020-11-30] MEDS: Z GUARD REMEDY 4 OZ OINT TP PRN (09:01)
[2020-11-30] MEDS: CLOTRIMAZOLE 1% 15 GM TUBE TP SCH ×2 (09:01→16:53)
[2020-11-30] MEDS: Z GUARD REMEDY 2 OZ OINT TP SCH (09:05)
[2020-11-30] MEDS: OXYMETAZOLINE HCL NASAL SPRAY 30 ML BOTTLE NS SCH ×2 (09:07→16:56)
[2020-11-30] MEDS: FLUTICASONE/VILANTEROL 1 EACH BLST.W.DEV IH SCH (09:08)
[2020-11-30] MEDS: Magnesium 1GM/D5W 100ML PREMIX 100 ML IV SCH ×2 (10:05→11:11)
[2020-11-30 11:27] LABS: PLATELET COUNT (AUTO) 61 /CMM (150-450)
[2020-11-30 12:14] LABS: EOSINOPHILS % (MANUAL) 1 % (0-4); LYMPHOCYTES % (MANUAL) 3 % (16-48); MONOCYTES % (MANUAL) 2 % (0-11.0); NEUTROPHILS % (MANUAL) 94 (42-76)
[2020-11-30 14:00] VITALS: BP 101/73
[2020-11-30 16:25] VITALS: BP 101/73
[2020-11-30] MEDS: MEGESTROL ACETATE SUSP 400 MG/10 ML UDC PO SCH (16:52)
--- NOTE | 2020-11-30 19:00 | NUR ---
RN CLOSING NOTES PT AWAKE IN BED AT THIS TIME. PT REMAINED STABLE THROUGHOUT SHIFT. PT ON OXYGEN @5LPM VIA NC SATURATING @ 97% AT THIS TIME. ALL CARE, NEED, MEDICATIONS AND TREATMENT ADMINISTERED ANTICIPATED PER ORDER. PT KEPT CLEAN AND DRY. BED BATH GIVEN, LINEN CHANGED AND KEPT CLEAN. PT REPOSITIONED Q2HR AND PRN. ASPIRATION, RESPIRATION AND SAFETY PRECAUTION IN PLACE AND MAINTAINED AT ALL TIMES. BED IN LOWEST LOCKED POSITION, HOB ELEVATED, SIDE RAILS UP X 2, CALL LIGHT AND TABLE WITHIN REACH. ENDORSED TO INTERNET SALES CONSULTANT NURSE FOR [facility].
--- NOTE | 2020-11-30 19:30 | NUR ---
RN OPENING NOTES REPORT RECIEVED FROM IMMACULATE RN. PT IN BED PT ON OXYGEN @5LPM VIA NC IN NO APPARENT RESP DISTRESS. ASPIRATION, AND SAFETY PRECAUTION IN PLACE BED DOWN LOCKED SRX3 CALL LIGTH WITHIN REACH. BED IN LOWEST LOCKED POSITION, HOB ELEVATED, [id number]. WILL CONT TO MONITOR.
[2020-11-30 20:00] VITALS: BP 106/65
[2020-11-30] MEDS: LACTULOSE 10 G/15 ML UDC (PYXIS) PO PRN (21:33)
[2020-11-30] MEDS: TRAZODONE 50 MG TABLET PO SCH (21:33)
[2020-11-30] MEDS: ACETAMINOPHEN 325 MG TABLET PO PRN (21:58)
--- NOTE | 2020-11-30 22:04 | NUR ---
tyelenol administered per patient request. states he has minor grande rated 3/10.
[2020-12-01] MEDS: IPRATROPIUM NEB FS 0.5 MG/2.5 ML AMPUL.NEB IH SCH ×5 (03:47→20:00)
[2020-12-01] MEDS: ACETAMINOPHEN 325 MG TABLET PO PRN (03:55)
[2020-12-01] MEDS: LORAZEPAM INJ 2 MG/ML VIAL IV PRN (03:55)
[2020-12-01 04:16] VITALS: BP 99/67
--- NOTE | 2020-12-01 06:38 | NUR ---
RN CLOSING NOTES PT IN BED SEEN WITH EYES CLOSED. PT ON OXYGEN @5LPM VIA NC IN NO APPARENT RESP DISTRESS. IN NO APPARENT PAIN. ASPIRATION, AND SAFETY PRECAUTION IN PLACE BED DOWN LOCKED SRX3 CALL LIGHT WITHIN REACH. BED IN LOWEST LOCKED POSITION, HOB ELEVATED, [id number]. WILL ENDORSE TO ONCOMING SHIFT.
[2020-12-01 07:22] LABS: CALCIUM, SERUM 8.8 mg/dL (8.5-10.1); CREATININE 0.5 mg/dL (0.6-1.3); POTASSIUM 4.1 mmol/L (3.5-5.1)
--- NOTE | 2020-12-01 07:39 | NUR ---
MS RN OPENING NOTES RECEIVED PATIENT IN BED, ASLEEP. PATIENT ON OXYGEN THERAPY AT 5 LPM VIA NASAL CANNULA; BREATHING EVEN AND UNLABORED AT THIS TIME. NO S/S OF PAIN SUCH FACIAL GRIMACING, GUARDING OR MOANING. BRIAN PICC SL. SAFETY PRECAUTIONS IN PLACE; BED IN LOW POSITION AND LOCKED, RAILS UP X2, CALL LIGHT WITHIN REACH. WILL CONTINUE TO MONITOR PATIENT.
[2020-12-01] MEDS: PANTOPRAZOLE 40 MG TABLET.DR PO SCH (07:51)
[2020-12-01] MEDS: BLOOD SUGAR DIAGNOSTIC 1 EACH STRIP IN SCH ×4 (07:57→22:40)
[2020-12-01] MEDS: Z GUARD REMEDY 2 OZ OINT TP SCH (08:39)
[2020-12-01] MEDS: CLOTRIMAZOLE 1% 15 GM TUBE TP SCH ×2 (08:39→17:32)
[2020-12-01] MEDS: SPIRONOLACTONE 25 MG TABLET PO SCH (08:40)
[2020-12-01] MEDS: OXYMETAZOLINE HCL NASAL SPRAY 30 ML BOTTLE NS SCH ×2 (08:40→17:38)
[2020-12-01] MEDS: DULOXETINE HCL 30 MG CAPSULE.DR PO SCH ×2 (08:43→17:38)
[2020-12-01] MEDS: busPIRone 5 MG TABLET PO SCH ×3 (08:43→17:38)
[2020-12-01] MEDS: THIAMINE HCL 100 MG TABLET PO SCH (08:43)
[2020-12-01] MEDS: FOLIC ACID 1 MG TABLET PO SCH (08:43)
[2020-12-01] MEDS: FLUTICASONE/VILANTEROL 1 EACH BLST.W.DEV IH SCH (08:44)
[2020-12-01] MEDS: methylPREDNISolone SOD SUCC 40 MG/ML VIAL IV SCH (08:44)
[2020-12-01] MEDS: INSULIN GLARGINE, 100 UNIT/ML CARTRIDGE SQ SCH (08:55)
[2020-12-01 09:28] LABS: BASOPHILS % (AUTO) 0.1 % (0.0-2.0); EOSINOPHILS % (AUTO) 0.6 % (0.0-6.0); HEMATOCRIT 32 % (39-51); HEMOGLOBIN 10.8 g/dL (13.5-17.5); MEAN CORPUSCULAR HGB CONC 34 g/dl (31.0-36.0); MEAN CORPUSCULAR VOLUME 101 fL (80-96); MONOCYTES # (AUTO) 0.5 /CMM (0.1-1.30); MONOCYTES % (AUTO) 3.5 % (2.0-12.0); NEUTROPHILS # (AUTO) 12.7 /CMM (1.8-8.9); NEUTROPHILS % (AUTO) 88.8 % (43.0-81.0); RED BLOOD CELL COUNT(AUTO) 3.14 MIL/uL (4.5-6.0); WHITE BLOOD COUNT (AUTO) 14.3 K/uL (4.3-11.0)
[2020-12-01 09:31] LABS: PLATELET COUNT (AUTO) 44 /CMM (150-450)
--- NOTE | 2020-12-01 09:38 | NUR ---
MS RN NOTES RECEIVED CALL FROM LAB WITH CRITICAL RESULTS FOR PLATELETS OF 44. NOTIFIED AND AWARE.
[2020-12-01] MEDS: INSULIN REGULAR, HUMAN 100 UNIT/ML 3 ML VIAL SQ PRN ×3 (11:40→22:45)
--- NOTE | 2020-12-01 11:52 | NUR ---
MS RN NOTES PATIENT IN BED, RESTING SAYING HE FEEL OK YET HIS BREATHING A BIT DIFFICULT. TOOK VITAL SIGNS: BP: 105/73, HR 110, RESP 25, O2 96% ON 5 LPM. RT ALSO AT BEDSIDE WITH BREATHING TREATMENT. WILL CONTINUE TO MONITOR PATIENT.
[2020-12-01 16:24] VITALS: BP 114/75
[2020-12-01] MEDS: MEGESTROL ACETATE SUSP 400 MG/10 ML UDC PO SCH (17:38)
--- NOTE | 2020-12-01 19:07 | NUR ---
MS RN CLOSING NOTES PATIENT REMAINS IN BED, AWAKE, A/O X2. PATIENT ON OXYGEN THERAPY AT 5 LPM VIA NASAL CANNULA; BREATHING EVEN WITH SLIGHT LABOR BUT PATIENT STATES HE IS OK. SATURATING WELL AT THIS TIME. NO COMPLAINS OF PAIN. BRIAN PICC SL. ALL NEEDS ATTENDED THROUGHOUT THE DAY. SAFETY PRECAUTIONS IN PLACE; BED IN LOW POSITION AND LOCKED, RAILS UP X2, CALL LIGHT WITHIN REACH, HOB ELEVATED AT 30 DEGREES. WILL ENDORSE TO DISEASE EDUCATION SPECIALIST NURSE.
[2020-12-01 20:00] VITALS: BP 126/65
[2020-12-01] MEDS: TRAZODONE 50 MG TABLET PO SCH (22:20)
[2020-12-02] MEDS: IPRATROPIUM NEB FS 0.5 MG/2.5 ML AMPUL.NEB IH SCH ×6 (00:12→19:32)
[2020-12-02] MEDS: INSULIN REGULAR, HUMAN 100 UNIT/ML 3 ML VIAL SQ PRN ×2 (06:37→12:24)
[2020-12-02] MEDS: BLOOD SUGAR DIAGNOSTIC 1 EACH STRIP IN SCH ×3 (06:43→18:05)
[2020-12-02 06:55] LABS: EOSINOPHILS % (AUTO) 0.4 % (0.0-6.0); HEMATOCRIT 32 % (39-51); HEMOGLOBIN 10.8 g/dL (13.5-17.5); LYMPHOCYTES % (AUTO) 6.1 % (20.0-44.0); MEAN CORPUSCULAR HGB CONC 33 g/dl (31.0-36.0); MEAN CORPUSCULAR VOLUME 102 fL (80-96); MONOCYTES # (AUTO) 0.7 /CMM (0.1-1.30); MONOCYTES % (AUTO) 4.3 % (2.0-12.0); NEUTROPHILS # (AUTO) 15.3 /CMM (1.8-8.9); NEUTROPHILS % (AUTO) 89.2 % (43.0-81.0); RED BLOOD CELL COUNT(AUTO) 3.18 MIL/uL (4.5-6.0); WHITE BLOOD COUNT (AUTO) 17.2 K/uL (4.3-11.0)
[2020-12-02 07:07] LABS: CALCIUM, SERUM 8.8 mg/dL (8.5-10.1); CREATININE 0.5 mg/dL (0.6-1.3); MAGNESIUM 1.9 mg/dL (1.8-2.4); PHOSPHORUS 2.9 mg/dL (2.5-4.9); POTASSIUM 4.3 mmol/L (3.5-5.1)
--- NOTE | 2020-12-02 07:20 | NUR ---
MS RN OPENING NOTES PATIENT IS IN BED, AWAKE AND VERBALLY RESPONSIVE. A/O X2, ABLE TO MAKE NEEDS KNOWN. BREATHING EVEN, CURRENTLY ON OXYGEN AT 5 LPM VIA NASAL CANNULA, NO COMPLAINT OF SOB. BRIAN PICC LINE INTACT AND PATENT. SAFETY PRECAUTIONS IN PLACE: BED LOCKED, AND ON LOWEST POSITION, SIDE RAILS UP X2, CALL LIGHT WITHIN REACH. WILL CONTINUE TO MONITOR.
[2020-12-02 07:25] LABS: PLATELET COUNT (AUTO) 70 /CMM (150-450)
[2020-12-02 08:00] VITALS: BP 116/73
[2020-12-02] MEDS: PANTOPRAZOLE 40 MG TABLET.DR PO SCH (08:23)
[2020-12-02] MEDS: DULOXETINE HCL 30 MG CAPSULE.DR PO SCH ×2 (09:12→17:56)
[2020-12-02] MEDS: THIAMINE HCL 100 MG TABLET PO SCH (09:12)
[2020-12-02] MEDS: CLOTRIMAZOLE 1% 15 GM TUBE TP SCH ×2 (09:12→17:56)
[2020-12-02] MEDS: OXYMETAZOLINE HCL NASAL SPRAY 30 ML BOTTLE NS SCH ×2 (09:12→17:56)
[2020-12-02] MEDS: FOLIC ACID 1 MG TABLET PO SCH (09:12)
[2020-12-02] MEDS: SPIRONOLACTONE 25 MG TABLET PO SCH (09:12)
[2020-12-02] MEDS: FLUTICASONE/VILANTEROL 1 EACH BLST.W.DEV IH SCH (09:12)
[2020-12-02] MEDS: methylPREDNISolone SOD SUCC 40 MG/ML VIAL IV SCH (09:12)
[2020-12-02] MEDS: busPIRone 5 MG TABLET PO SCH ×3 (09:12→17:56)
[2020-12-02] MEDS: Z GUARD REMEDY 2 OZ OINT TP SCH (09:12)
[2020-12-02] MEDS: INSULIN GLARGINE, 100 UNIT/ML CARTRIDGE SQ SCH (09:15)
[2020-12-02 12:34] LABS: BAND % (MANUAL) 1 % (0.0-5.0); LYMPHOCYTES % (MANUAL) 8 % (16-48); MONOCYTES % (MANUAL) 4 % (0-11.0); NEUTROPHILS % (MANUAL) 87 (42-76)
[2020-12-02 16:00] VITALS: BP 111/62
[2020-12-02] MEDS ORDERED: INSU100V28 SQ (16:23)
[2020-12-02] MEDS ORDERED: methylPREDNISolone SOD SUCC IV (16:23)
[2020-12-02] MEDS ORDERED: PANT40TA2 PO (16:23)
[2020-12-02] MEDS ORDERED: CLOT15CR35 TP (16:23)
[2020-12-02] MEDS ORDERED: ACET325T53 PO (16:23)
[2020-12-02] MEDS ORDERED: ALLA266C2 TP (16:23)
[2020-12-02] MEDS ORDERED: MEGE400O4 PO (16:23)
[2020-12-02] MEDS ORDERED: LACT10SO58 PO (16:23)
--- NOTE | 2020-12-02 17:19 | NUR ---
RN NOTES OBTAINED SWAB FOR COVID-19 RAPID TEST; SPECIMEN COLLECTED AND WILL SEND TO LAB.
[2020-12-02] MEDS: MEGESTROL ACETATE SUSP 400 MG/10 ML UDC PO SCH (17:56)
--- NOTE | 2020-12-02 19:30 | NUR ---
MS RN OPENING NOTE RECEIVED PATIENT IN BED. A/O X2-3. ON HUMIDIFIED OXYGEN 4L/MIN VIA NASAL CANNULA. RESPIRATIONS ARE EVEN AND UNLABORED. NO S/S SOB NOTED. NO C/ON PAIN AT THIS TIME. IN NO APPARENT DISTRESS. IV ACCESS IN BRIAN PICC LINE PATENT AND SALINE LOCKED. INFORMED PATIENT HE IS GOING TO BE DISCHARGED SOON. BED IS LOW AND LOCKED, HOB ELEVATED IN SEMI FOWLERS, SIDE RIALS UP X23. CALL LIGHT WITHIN REACH. WILL CONTINUE TO MONITOR UNTIL DISCHARGED SCHEDULED AR 1999.
[2020-12-02 20:40] VITALS: BP 112/71
--- NOTE | 2020-12-02 20:40 | NUR ---
MS DISTRICT TRAFFIC CHIEF NOTE PATIENT IS BEING DISCHARGED TO [facility]. PATIENT IS A/OX2-3. ON HUMIDIFIED OXYGEN 4L/MIN ANASAL CANNULA. O2 SAT 95%. NO RESP DISTRESS. NO C/O PAIN. NO DISTRESS. PHOTOS HAVE BEEN TAKEN AND PLACED IN CHART. IV SITE IN BRIAN PICC LINE MAINTAINED, NOT REMOVED. EXIT CARE AND BELONGING LIST SIGNED, COPY PLACED IN CHART. PATIENT TRANSFERED TO [facility] WITH NO INJURIES. PATIENT LEFT WITH EXIT CARE, BELONGINGS AND IN STABLE CONDITION. VS TEMP 97.7 BP 112/71 HR 113 RR 24 O2 SAT 95%. SARAH FLORENTINO AT [facility] WAS GIVEN REPORT.
== END 2020-12-02 20:40 | DRG 871 ==
LOC: ER 02:08 → TRANSITION 06:08 → TELE 11-13 21:32 → MED 11-23 12:39
PROVIDERS: ADMIT Student in an Organized Health Care Education/Training Program; ATTEND Registered Nurse
PROC: 02HV33Z Insertion of Infusion Device into Superior Vena Cava, Percutaneous Approach (ICD-10-PCS; principal; 2020-11-11)
PROC: B548ZZA Ultrasonography of Superior Vena Cava, Guidance (ICD-10-PCS; 2020-11-11)
PROC: 30233R1 Transfusion of Nonautologous Platelets into Peripheral Vein, Percutaneous Approach (ICD-10-PCS; 2020-11-13)
DX: A41.9 Sepsis, unspecified organism (principal); J96.21 Acute and chronic respiratory failure with hypoxia; J15.9 Unspecified bacterial pneumonia; R57.9 Shock, unspecified; E87.1 Hypo-osmolality and hyponatremia; G93.40 Encephalopathy, unspecified; J44.0 Chronic obstructive pulmonary disease with (acute) lower respiratory infection; D68.9 Coagulation defect, unspecified; Z66 Do not resuscitate; D69.6 Thrombocytopenia, unspecified; R13.10 Dysphagia, unspecified; Z20.822 Contact with and (suspected) exposure to COVID-19; K74.60 Unspecified cirrhosis of liver; D53.9 Nutritional anemia, unspecified; I10 Essential (primary) hypertension; R74.01 Elevation of levels of liver transaminase levels; J84.10 Pulmonary fibrosis, unspecified; E11.9 Type 2 diabetes mellitus without complications; Y95 Nosocomial condition; T38.0X5A Adverse effect of glucocorticoids and synthetic analogues, initial encounter; Y92.9 Unspecified place or not applicable
CPT/HCPCS: 31720; 36415; 36569; 36600; 71045-TC; 80048-TC; 80053-TC; 80061-TC; 80076-TC; 80202-TC; 81001; 82140-TC; 82330; 82728-TC; 82784; 82803-TC; 82962-TC; 83540-TC; 83605-TC; 83735-TC; 83880; 84100-TC; 84155; 84165; 84484-TC; 85025-TC; 85396; 85610-TC; 85730-TC; 86022; 86140-TC; 86225; 86235; 86334; 86431-TC; 86706; 86803; 87040-TC; 87340; 92526; 92611-TC; 94760-TC; 94761-TC; 94799-TC; 97110-TC; 97112-TC; 97116-TC; 97530-TC; A6253; A6403; A9563; C9803; G0378; J1650; J1815; J2060; J2185; J2543; J2920; J2930; J3370; J3475; J3490; J7030; J7040; J7042; J7050; J7060; P9016-BL; P9034-BL; Q9967; U0003

== ENCOUNTER 2020-12-04 11:38 | Inpatient (IN) | payer BC ==
[~2020-12-04] VITALS: Ht 180.3 cm; Wt 62.6 kg
[~2020-12-04 11:38] MED LIST: ACET-868 PO; ACET325T53 PO; ALBU0.633 IH; ALLA266C2 TP; ARFO15VI NEB; BUSP15TA3 PO; CLOT15CR35 TP; DULO60CA45 PO; FOLI0.4T2 PO; HYDR10SY16 PO; INSU100V SQ; INSU100V28 SQ; INSU100V7 SQ; IPRA0.2S49 IH; LACT10SO58 PO; MEGE400O4 PO; METF500S7 PO; MOME13HF IH; OMEP20TA5 PO; OXYM15MI BNOSTRILS; PANT40TA2 PO; PREDNISONE PO; SPIR25TA6 PO; THIA100T70 PO; TIOT18CA3 IH; TRAZ-182 PO; methylPREDNISolone SOD SUCC IV
[2020-12-04] MEDS ORDERED: VANCOMYCIN 1 GM in IV D5W 250 ML IV ONE (12:00)
[2020-12-04] MEDS ORDERED: CEFEPIME 1 GM in IV D5W 50 ML IV ONE (12:00)
[2020-12-04 12:10] LABS: ABG BASE EXCESS 0.8 mmol/L; ABG OXYGEN SATURATION 93.2 % (92.0-98.5); ABG PCO2 51.6 mmHg (35.0-45.0); ABG PH 7.341 (7.350-7.450); ABG PO2 74.8 mmHg (75.0-100.0); AaDO2 441.4 mmHg; COHb 2.4 % (0.5-1.5); MetHb 0.5 % (0.0-1.5); O2Hb 90.5 % (94.0-97.0); SITE, ABG Right Radial; VENT MODE, BG NRB
[2020-12-04] MEDS ORDERED: FLUT1BLS IH (12:28)
[2020-12-04] MEDS ORDERED: ASCO500C17 PO (12:28)
[2020-12-04] MEDS ORDERED: MULT-439 PO (12:28)
[2020-12-04] MEDS ORDERED: AMIN887L PO (12:28)
[2020-12-04 12:42] LABS: BASOPHILS % (AUTO) 0.2 % (0.0-2.0); HEMATOCRIT 39 % (39-51); HEMOGLOBIN 12.4 g/dL (13.5-17.5); LYMPHOCYTES # (AUTO) 0.5 /CMM (0.8-4.8); LYMPHOCYTES % (AUTO) 2.7 % (20.0-44.0); MEAN CORPUSCULAR HGB CONC 32 g/dl (31.0-36.0); MEAN CORPUSCULAR VOLUME 106 fL (80-96); MONOCYTES % (AUTO) 5.3 % (2.0-12.0); NEUTROPHILS # (AUTO) 17.1 /CMM (1.8-8.9); NEUTROPHILS % (AUTO) 91.8 % (43.0-81.0); RED BLOOD CELL COUNT(AUTO) 3.65 MIL/uL (4.5-6.0); WHITE BLOOD COUNT (AUTO) 18.6 K/uL (4.3-11.0)
[2020-12-04 12:52] LABS: CALCIUM, SERUM 9.2 mg/dL (8.5-10.1); CARBON DIOXIDE 30 mmol/L (21-32); CHLORIDE 102 mmol/L (98-107); CREATININE 0.7 mg/dL (0.6-1.3); GLUCOSE 207 mg/dL (74-106); POTASSIUM 5.1 mmol/L (3.5-5.1); SODIUM SERUM 139 mmol/L (136-145); UREA NITROGEN, BLOOD 21 mg/dL (7-18)
[2020-12-04 13:05] LABS: ALANINE AMINOTRANSFERASE 55 U/L (12-78); ALKALINE PHOSPHATASE 175 U/L (46-116); ASPARTATE AMINOTRANSFERASE 39 U/L (15-37); B-TYPE NATRIURETIC PEPTIDE 2033 PG/ML (0-125); BILIRUBIN,TOTAL 5.1 mg/dL (0.2-1.0); TOTAL PROTEIN, SERUM 6.6 g/dL (6.4-8.2)
[2020-12-04 13:17] LABS: D-DIMER 1.31 mg/L(FEU (0.17-0.50)
[2020-12-04 13:38] LABS: PLATELET COUNT (AUTO) 65 /CMM (150-450)
[2020-12-04 13:43] LABS: BAND % (MANUAL) 2 % (0.0-5.0); LYMPHOCYTES % (MANUAL) 7 % (16-48); MONOCYTES % (MANUAL) 1 % (0-11.0); NEUTROPHILS % (MANUAL) 90 (42-76)
[2020-12-04 13:57] LABS: CREATINE KINASE, TOTAL 111 U/L (39-308); FERRITIN 661 ng/mL (8-388)
[2020-12-04 14:05] LABS: C-REACTIVE PROTEIN 8.2 mg/dL (0.0-0.9)
[2020-12-04] MEDS ORDERED: ONDANSETRON HCL/PF 4 MG/2 ML VIAL IVP PRN (14:30)
[2020-12-04] MEDS ORDERED: DEXTROSE 50%-WATER 50 ML DISP.SYRIN IV PRN (14:30)
[2020-12-04] MEDS ORDERED: *INSULIN REGULAR(HUMULIN R)HUM 100 UNIT/ML VIAL SQ PRN (14:30)
[2020-12-04] MEDS ORDERED: ENOXAPARIN SODIUM 30 MG/0.3 ML DISP.SYRIN SQ SCH (14:30)
[2020-12-04] MEDS ORDERED: MAG HYDROX/AL HYDROX/SIMETH 30 ML UDC PO PRN (14:30)
[2020-12-04] MEDS ORDERED: LACTULOSE 10 G/15 ML UDC (PYXIS) PO PRN (14:30)
[2020-12-04] MEDS ORDERED: ACETAMINOPHEN 325 MG TABLET PO PRN (14:30)
[2020-12-04] MEDS ORDERED: HYDROCODONE/APAP 5/325MG TABLET PO PRN (14:30)
[2020-12-04] MEDS ORDERED: Z GUARD REMEDY 2 OZ OINT TP PRN (14:30)
[2020-12-04] MEDS ORDERED: MAGNESIUM HYDROXIDE 30 ML UDC PO PRN (14:30)
[2020-12-04] MEDS ORDERED: IV NS 0.9% 500 ML IV PRN ×2 (15:00→16:00)
[2020-12-04] MEDS ORDERED: ALBUTEROL SULFATE 8 GM HFA.AER.AD IH SCH (15:30)
[2020-12-04] MEDS ORDERED: IPRATROPIUM NEB FS 0.5 MG/2.5 ML AMPUL.NEB IH SCH (15:30)
[2020-12-04] MEDS ORDERED: methylPREDNISolone SOD SUCC 125 MG/2ML VIAL ONE ×2 (15:40→21:08)
[2020-12-04] MEDS: methylPREDNISolone SOD SUCC 125 MG/2ML VIAL IV SCH ×2 (15:43→21:15)
[2020-12-04] MEDS ORDERED: IPRATROPIUM NEB FS 0.5 MG/2.5 ML AMPUL.NEB ONE ×2 (16:00→20:08)
[2020-12-04] MEDS: IPRATROPIUM NEB FS 0.5 MG/2.5 ML AMPUL.NEB NEB SCH ×3 (16:07→23:30)
[2020-12-04] MEDS: ALBUTEROL HALF STRENGTH 1.25 MG/3 ML VIAL.NEB NEB SCH ×3 (16:07→23:30)
[2020-12-04] MEDS: MEGESTROL ACETATE SUSP 400 MG/10 ML UDC PO SCH (17:00)
[2020-12-04] MEDS: busPIRone 5 MG TABLET PO SCH (17:00)
[2020-12-04] MEDS: DULOXETINE HCL 30 MG CAPSULE.DR PO SCH (17:00)
[2020-12-04] MEDS: BLOOD SUGAR DIAGNOSTIC 1 EACH STRIP VI SCH ×2 (17:39→22:32)
[2020-12-04] MEDS: IV D5/0.45 NACL 1,000 ML IV PRN (17:42)
[2020-12-04] MEDS: ZOSYN IVPB 3.375 G in IV D5W 50ml IV SCH (17:42)
[2020-12-04] MEDS: TRAZODONE 50 MG TABLET PO SCH (22:00)
[2020-12-04] MEDS ORDERED: TRAZODONE 50 MG TABLET ONE (22:11)
[2020-12-05] MEDS: ZOSYN IVPB 3.375 G in IV D5W 50ml IV SCH ×5 (00:13→23:44)
[2020-12-05] MEDS: VANCOMYCIN 1 GM in IV D5W 250ml IV SCH ×2 (00:43→13:48)
[2020-12-05] MEDS: ALBUTEROL HALF STRENGTH 1.25 MG/3 ML VIAL.NEB NEB SCH ×6 (03:30→23:30)
[2020-12-05] MEDS: IPRATROPIUM NEB FS 0.5 MG/2.5 ML AMPUL.NEB NEB SCH ×6 (03:30→23:30)
[2020-12-05 05:43] LABS: EOSINOPHILS % (AUTO) 0.3 % (0.0-6.0); HEMATOCRIT 29 % (39-51); HEMOGLOBIN 9.6 g/dL (13.5-17.5); LYMPHOCYTES # (AUTO) 0.2 /CMM (0.8-4.8); LYMPHOCYTES % (AUTO) 1.6 % (20.0-44.0); MEAN CORPUSCULAR HGB CONC 33 g/dl (31.0-36.0); MEAN CORPUSCULAR VOLUME 106 fL (80-96); MONOCYTES # (AUTO) 0.4 /CMM (0.1-1.30); MONOCYTES % (AUTO) 3.4 % (2.0-12.0); NEUTROPHILS # (AUTO) 12.3 /CMM (1.8-8.9); NEUTROPHILS % (AUTO) 94.7 % (43.0-81.0); RED BLOOD CELL COUNT(AUTO) 2.75 MIL/uL (4.5-6.0)
[2020-12-05] MEDS ORDERED: methylPREDNISolone SOD SUCC 125 MG/2ML VIAL ONE (05:44)
[2020-12-05 05:50] LABS: PLATELET COUNT (AUTO) 36 /CMM (150-450)
[2020-12-05 05:52] LABS: CALCIUM, SERUM 8.2 mg/dL (8.5-10.1); CREATININE 1.3 mg/dL (0.6-1.3); MAGNESIUM 1.7 mg/dL (1.8-2.4); PHOSPHORUS 5.4 mg/dL (2.5-4.9); POTASSIUM 4.7 mmol/L (3.5-5.1)
[2020-12-05] MEDS: methylPREDNISolone SOD SUCC 125 MG/2ML VIAL IV SCH ×3 (05:53→20:35)
[2020-12-05] MEDS: PANTOPRAZOLE 40 MG TABLET.DR PO SCH (07:30)
[2020-12-05] MEDS ORDERED: INSULIN REGULAR, HUMAN 100 UNIT/ML 10 ML VIAL ONE (08:13)
[2020-12-05] MEDS: BLOOD SUGAR DIAGNOSTIC 1 EACH STRIP VI SCH ×4 (08:13→21:13)
[2020-12-05] MEDS: INSULIN REGULAR, HUMAN 100 UNIT/ML 3 ML VIAL SQ PRN ×2 (08:14→17:00)
[2020-12-05] MEDS: IV D5/0.45 NACL 1,000 ML IV PRN ×2 (08:14→23:46)
[2020-12-05] MEDS: DULOXETINE HCL 30 MG CAPSULE.DR PO SCH ×2 (09:00→16:30)
[2020-12-05] MEDS ORDERED: FLUTICASONE/VILANTEROL 1 EACH BLST.W.DEV IH SCH (09:00)
[2020-12-05] MEDS: busPIRone 5 MG TABLET PO SCH ×3 (09:00→16:30)
[2020-12-05 09:21] LABS: BAND % (MANUAL) 12 % (0.0-5.0); LYMPHOCYTES % (MANUAL) 1 % (16-48); MONOCYTES % (MANUAL) 3 % (0-11.0); MYELOCYTES % 2 % (0-0); NEUTROPHILS % (MANUAL) 82 (42-76)
[2020-12-05] MEDS: Magnesium 1GM/D5W 100ML PREMIX 100 ML IV SCH ×2 (11:50→13:45)
[2020-12-05 16:07] VITALS: BP 133/82
[2020-12-05] MEDS: MEGESTROL ACETATE SUSP 400 MG/10 ML UDC PO SCH (16:30)
[2020-12-05 20:00] VITALS: BP 122/80
[2020-12-05] MEDS: TRAZODONE 50 MG TABLET PO SCH (21:08)
[2020-12-06] MEDS: VANCOMYCIN 1 GM in IV D5W 250ml IV SCH ×2 (00:21→13:10)
[2020-12-06] MEDS: ALBUTEROL HALF STRENGTH 1.25 MG/3 ML VIAL.NEB NEB SCH ×5 (03:30→19:01)
[2020-12-06] MEDS: IPRATROPIUM NEB FS 0.5 MG/2.5 ML AMPUL.NEB NEB SCH ×5 (03:30→19:01)
[2020-12-06 04:00] VITALS: BP 120/82
[2020-12-06] MEDS: methylPREDNISolone SOD SUCC 125 MG/2ML VIAL IV SCH ×2 (04:01→13:08)
[2020-12-06] MEDS: ZOSYN IVPB 3.375 G in IV D5W 50ml IV SCH ×3 (05:04→18:00)
[2020-12-06] MEDS: INSULIN REGULAR, HUMAN 100 UNIT/ML 3 ML VIAL SQ PRN ×2 (06:38→12:27)
[2020-12-06] MEDS: PANTOPRAZOLE 40 MG TABLET.DR PO SCH (07:30)
[2020-12-06] MEDS: BLOOD SUGAR DIAGNOSTIC 1 EACH STRIP VI SCH ×3 (07:37→16:47)
[2020-12-06 07:44] LABS: BASOPHILS % (AUTO) 0.1 % (0.0-2.0); HEMATOCRIT 31 % (39-51); HEMOGLOBIN 10.4 g/dL (13.5-17.5); LYMPHOCYTES # (AUTO) 0.2 /CMM (0.8-4.8); LYMPHOCYTES % (AUTO) 1.1 % (20.0-44.0); MEAN CORPUSCULAR HGB CONC 34 g/dl (31.0-36.0); MEAN CORPUSCULAR VOLUME 104 fL (80-96); MONOCYTES # (AUTO) 0.4 /CMM (0.1-1.30); MONOCYTES % (AUTO) 2.5 % (2.0-12.0); NEUTROPHILS # (AUTO) 15.9 /CMM (1.8-8.9); NEUTROPHILS % (AUTO) 96.3 % (43.0-81.0); RED BLOOD CELL COUNT(AUTO) 2.99 MIL/uL (4.5-6.0); WHITE BLOOD COUNT (AUTO) 16.5 K/uL (4.3-11.0)
[2020-12-06 07:52] LABS: PLATELET COUNT (AUTO) 66 /CMM (150-450)
[2020-12-06 08:00] VITALS: BP 116/80
[2020-12-06] MEDS: busPIRone 5 MG TABLET PO SCH ×3 (08:08→16:01)
[2020-12-06] MEDS: DULOXETINE HCL 30 MG CAPSULE.DR PO SCH ×2 (08:08→16:03)
[2020-12-06 08:10] LABS: CALCIUM, SERUM 8.6 mg/dL (8.5-10.1); CREATININE 0.7 mg/dL (0.6-1.3); MAGNESIUM 2.1 mg/dL (1.8-2.4); POTASSIUM 4.2 mmol/L (3.5-5.1)
[2020-12-06 12:01] LABS: BAND % (MANUAL) 5 % (0.0-5.0); MONOCYTES % (MANUAL) 1 % (0-11.0); NEUTROPHILS % (MANUAL) 94 (42-76)
[2020-12-06 12:31] LABS: LYMPHOCYTES % (MANUAL) 0 % (16-48)
[2020-12-06] MEDS: MEGESTROL ACETATE SUSP 400 MG/10 ML UDC PO SCH (16:03)
[2020-12-06] MEDS ORDERED: CLINDAMYCIN IV RTU IN D5W 900 MG/50 ML PIGGYBACK IV SCH (20:00)
[2020-12-06] MEDS ORDERED: DOSING PER PHARMACY-AMIKACI IV XX PRN (20:00)
[2020-12-06] MEDS ORDERED: AMIKACIN 1,000 MG in IV D5W 100 ML IV ONE (21:00)
[2020-12-07] MEDS ORDERED: VANCOMYCIN HCL 0.75 GM in IV D5W 250 ML IV SCH (03:00)
== END 2020-12-06 18:05 | disposition expired | DRG 871 ==
LOC: ER 11:40 → TRANSITION 14:43 → TELE 12-05 11:35 → MEDSG2 12-05 11:38
PROVIDERS: ADMIT Internal Medicine; ATTEND Internal Medicine
DX: A41.9 Sepsis, unspecified organism (principal); J18.9 Pneumonia, unspecified organism; J96.21 Acute and chronic respiratory failure with hypoxia; J96.22 Acute and chronic respiratory failure with hypercapnia; N17.0 Acute kidney failure with tubular necrosis; I21.A1 Myocardial infarction type 2; E43 Unspecified severe protein-calorie malnutrition; J47.1 Bronchiectasis with (acute) exacerbation; R57.9 Shock, unspecified; E87.2 Acidosis; G93.40 Encephalopathy, unspecified; Z66 Do not resuscitate; I10 Essential (primary) hypertension; I27.20 Pulmonary hypertension, unspecified; K74.60 Unspecified cirrhosis of liver; K72.90 Hepatic failure, unspecified without coma; E11.9 Type 2 diabetes mellitus without complications; Z98.890 Other specified postprocedural states; Z79.51 Long term (current) use of inhaled steroids; Z79.4 Long term (current) use of insulin; Z79.899 Other long term (current) drug therapy; Y95 Nosocomial condition; Z20.822 Contact with and (suspected) exposure to COVID-19; Z87.891 Personal history of nicotine dependence; R13.10 Dysphagia, unspecified; K76.9 Liver disease, unspecified; D63.8 Anemia in other chronic diseases classified elsewhere; F09 Unspecified mental disorder due to known physiological condition; N13.9 Obstructive and reflux uropathy, unspecified; D69.6 Thrombocytopenia, unspecified
CPT/HCPCS: 36415; 36600; 71045-TC; 80048-TC; 80053-TC; 80202-TC; 82248-TC; 82550-TC; 82728-TC; 82803-TC; 82962-TC; 83605-TC; 83615-TC; 83735-TC; 83880; 84100-TC; 84484-TC; 85025-TC; 85378-TC; 85385-TC; 85730-TC; 86140-TC; 87040-TC; 87081-TC; 94799-TC; G0378; J0278; J0692; J1815; J2543; J2930; J3370; J3475; J3490; J7040; J7060; U0003